=== PATIENT | female | born 1950 | race Caucasian/White ===

== ENCOUNTER 2017-02-15 12:35 | Emergency (ER) | payer OTHER, MEDICARE ==
[2017-02-15 12:40] VITALS: TEMP 98.1; BMI 24.7
[2017-02-15] MEDS ORDERED: PANTOPRAZOLE SODIUM 40 MG in SODIUM CHLORIDE 100 ML IVPB ONE (14:27)
[2017-02-15] MEDS ORDERED: SODIUM CHLORIDE 1,000 ML IV STA (14:27)
[2017-02-15] MEDS ORDERED: ONDANSETRON 4 MG/2 ML VIAL IVPUSH ONE (14:27)
[2017-02-15] MEDS ORDERED: PANTOPRAZOLE SODIUM 100 ML IVPB ONE (14:35)
[2017-02-15] MEDS ORDERED: ONDANSETRON 4 MG/2 ML VIAL ONE (14:35)
[2017-02-15 14:56] LABS: URINE APPEARANCE SLCLOUDY; URINE BILIRUBIN NEGATIVE (NEGATIVE); URINE COLOR LTYELLOW; URINE GLUCOSE (UA) NEGATIVE (NEGATIVE); URINE KETONE NEGATIVE (NEGATIVE); URINE NITRITE NEGATIVE (NEGATIVE); URINE UROBILINOGEN NEGATIVE E.U./dl (0.2-1.0)
--- NOTE | 2017-02-15 14:56 | PDOC ---
History of Present Illness - General Chief Complaint: Nausea/Vomiting Stated Complaint: NAUSEA/ LOSS OF APPETITE Time Seen by Provider: 02/15/17 13:19 History Source: Patient Exam Limitations: No Limitations - History of Present Illness Travel History: No Initial Comments: 02/15/17 14:51 66-year-old female presents the ED with complaints of epigastric pain associated with nausea and vomiting. Patient denies fever, chills, chest pain, shortness of breath, lower abdominal pain, diarrhea, or dysuria. Patient states was recently diagnosed with diabetes and is currently on Glucophage for the past 2 weeks. Patient denies recent travel, recent illness, recent sick contacts , recent change in diet. Patient does state history of hypothyroidism and autoimmune hepatitis Timing/Duration: reports: constant Quality: reports: moderate, burning, cramping Abdominal Pain Onset Location: reports: epigastric Pain Radiation: reports: no radiation Activities at Onset: reports: none Aggravating Factors: improves with: None Alleviating Factors: improves with: None Past History - Past Medical History Allergies/Adverse Reactions: Allergies Allergy/AdvReac Type Severity Reaction Status Date / Time Nitrate Analogues Allergy Verified 02/15/17 12:40 codeine [Codeine] AdvReac headache Verified 02/15/17 12:40 Home Medications: Ambulatory Orders Amlodipine Besylate [Norvasc -] 5 mg PO DAILY 08/08/15 Benazepril HCl [Lotensin] 10 mg PO DAILY 08/08/15 Budesonide [Entocort EC -] 3 mg PO BID 08/08/15 Calcium Carbonate/Vitamin D3 [Calcium 600-Vit D3 200 Tablet] 1 each PO BID 08/08 Carvedilol 12.5 mg PO BID 08/08/15 Cyanocobalamin [Vitamin B12 -] 1,000 mcg PO DAILY 08/08/15 Levothyroxine [Synthroid -] 50 mcg PO ACBK 08/08/15 Losartan Potassium 100 mg PO DAILY 08/08/15 Milk Thistle 150 mg PO DAILY 08/08/15 Potassium Chloride [Klor-Con] 120 meq PO DAILY 08/08/15 Vitamin E 400 unit PO DAILY 08/08/15 Azathioprine 50 mg PO DAILY 02/15/17 Metformin HCl [Metformin HCl ER] 500 mg PO BID 02/15/17 Nitrofurantoin Monohyd/M-Cryst [Macrobid -] 100 mg PO BID #14 capsule 02/15/17 Ondansetron HCl [Zofran] 4 mg PO TID PRN #12 tablet 02/15/17 Ranitidine HCl [Zantac] 150 mg PO BID 02/15/17 Anemia: No Asthma: No Cancer: No Cardiac Disorders: No CVA: No COPD: No CHF: No Dementia: No Diabetes: Yes GI Disorders: Yes (VARICES, DIVERTICULOSIS, POLYPS) Disorders: No HTN: Yes Hypercholesterolemia: Yes Liver Disease: Yes (NAFLD, AUTOIMMUNE HEPATITIS) Suicide Attempt (Hx): No Seizures: No Thyroid Disease: Yes (HYPOTHYROIDISM) - Surgical History Abdominal Surgery: Yes Appendectomy: Yes (RUPTURED) Cardiac Surgery: No Cholecystectomy: No Lung Surgery: No Neurologic Surgery: No Orthopedic Surgery: No - Immunization History Immunization Up to Date: Yes - Psycho/Social/Smoking Cessation Hx Anxiety: No Suicidal Ideation: No Smoking Status: No Smoking History: Never smoked Have you smoked in the past 12 months: No Number of Cigarettes Smoked Daily: 0 Information on smoking cessation initiated: No Hx Alcohol Use: No Drug/Substance Use Hx: No Substance Use Type: None Hx Substance Use Treatment: No Patient Lives Alone: No Abd/GI Specific PMHX - Complaint Specific PMHX GERD: Yes Review of Systems - Review of Systems Able to Perform ROS?: Yes Constitutional: No: Symptoms Reported HEENTM: No: Symptoms Reported Respiratory: No: Symptoms reported Cardiac (ROS): No: Symptoms Reported ABD/GI: Yes: Nausea, Poor Appetite, Poor Fluid Intake, Vomiting, Indigestion, Abdominal cramping : No: Symptoms Reported Musculoskeletal: No: Symptoms Reported Integumentary: No: Symptoms Reported Endocrine: No: Symptoms Reported Hematologic/Lymphatic: No: Symptoms Reported *Physical Exam - Vital Signs Last Vital Signs Temp Pulse Resp BP Pulse Ox 98.1 F 100 H 18 118/86 100 02/15/17 12:38 02/15/17 12:38 02/15/17 12:38 02/15/17 12:38 02/15/17 12:38 - Physical Exam General Appearance: Yes: Nourished, Appropriately Dressed. No: Apparent Distress HEENT: positive: EOMI, VIC, Pharynx Normal Neck: positive: Normal Thyroid Respiratory/Chest: positive: Lungs Clear, Normal Breath Sounds. negative: Respiratory Distress, Accessory Muscle Use Cardiovascular: positive: Regular Rhythm, Regular Rate. negative: Murmur Gastrointestinal/Abdominal: positive: Normal Bowel Sounds, Soft, Tenderness ( upper periumbilical/epigastric). negative: Distended, Guarding, Rebound Musculoskeletal: negative: CVA Tenderness Extremity: positive: Normal Capillary Refill. negative: Pedal Edema Integumentary: positive: Normal Color, Warm, Moist Neurologic: positive: Motor Strength 5/5 (ambulatory) ED Treatment Course - LABORATORY CBC & Chemistry Diagram: 02/15/17 15:30 02/15/17 16:26 - Medications Given in the ED: ED Medications Discontinued Medications Generic Name Dose Route Start Last Admin Trade Name Freq PRN Reason Stop Dose Admin Ondansetron HCl 4 mg 02/15/17 14:27 02/15/17 14:50 Zofran Injection IVPUSH 02/15/17 14:28 4 mg ONCE ONE Administration Medical Decision Making - Medical Decision Making 02/15/17 14:55 Patient with epigastric pain for the past 2 days associated nausea and vomiting. Patient received eyedrops diabetes and is currently on Glucophage the past 2 weeks. Patient ordered for labs, acetone, IV fluids, antiemetics, and Protonix. 02/15/17 18:14 02/15/17 18:15 Laboratory Tests 02/15/17 02/15/17 14:20 15:30 WBC 3.9 L Neutrophils % 66.9 Monocytes % 14.0 H Urine Protein 2+ H Urine Blood 1+ H Urine Nitrite Negative Urine Urobilinogen Negative Ur Leukocyte Esterase 3+ H D Urine RBC 2 Urine WBC 91 Chemistry hemolyzed and was resent. Patient will be discharged home with antibiotics. Urine culture was sent. 02/15/17 18:17 Laboratory Tests 02/15/17 16:26 Sodium 142 Anion Gap 11 BUN 22 H D Creatinine 2.6 H D Creat Clearance w eGFR 18.36 Random Glucose 92 D Calcium 7.6 L Total Bilirubin 0.9 ALT 23 D Troponin I < 0.02 Albumin 3.1 L Patient will receive potassium by mouth. Patient also will follow up with her PCP regards to today's elevated BUN/creatinine. Patient states was told that she had elevated BUNs and creatinine by Dr. Merritt 2 months ago but unsure how high. 02/15/17 18:23 *DC/Admit/Observation/Transfer Diagnosis at time of Disposition: Hypokalemia, Elevated BUN, Elevated serum creatinine Urinary tract infection Qualifiers: Urinary tract infection type: acute cystitis Hematuria presence: without hematuria Qualified Code(s): N30.00 - Acute cystitis without hematuria - Discharge Dispostion Disposition: HOME Condition at time of disposition: Good - Prescriptions Prescriptions: Nitrofurantoin Monohyd/M-Cryst [Macrobid -] 100 mg PO BID #14 capsule Ondansetron HCl [Zofran] 4 mg PO TID PRN #12 tablet PRN Reason: Nausea And/Or Vomiting - Referrals Referrals: David Merritt MD [Primary Care Provider] - - Patient Instructions Printed Discharge Instructions: DI for Urinary Tract Infection (UTI) Additional Instructions: Please take antibiotics until completed. please follow-up with Dr. Merritt and bring copy of blood work with you next week May take Tylenol for discomfort Please return to ED if symptoms worsen.
[2017-02-15 15:04] LABS: URINE BLOOD 1+ (NEGATIVE); URINE LEUK ESTERASE 3+ (NEGATIVE); URINE PROTEIN 2+ (NEGATIVE)
[2017-02-15 15:32] LABS: URINE MUCUS RARE; URINE RBC 2 /hpf (0-3); URINE WBC 91 /hpf (3-5)
[2017-02-15 15:50] LABS: BASOPHIL 0.4 % (0-2.0); EOSINOPHIL 0.5 % (0-4.5); MCH 29.3 pg (25.7-33.7); MCHC 32.4 g/dl (32.0-36.0); MEAN CELL VOLUME 90.4 fl (80-96); MEAN PLT VOLUME 9.5 fl (7.5-11.1); NEUTROPHILS 66.9 % (42.8-82.8); PLATELET COUNT 103 K/MM3 (134-434); RDW 17.6 % (11.6-15.6); WHITE BLOOD COUNT 3.9 K/mm3 (4.0-10.0)
--- NOTE | 2017-02-15 16:19 | PDOC ---
*Physical Exam - Vital Signs Last Vital Signs Temp Pulse Resp BP Pulse Ox 98.1 F 100 H 18 118/86 100 02/15/17 12:38 02/15/17 12:38 02/15/17 12:38 02/15/17 12:38 02/15/17 12:38 Heart Score/ECG Review #1 ECG reviewed & interpreted by me at: 16:18 General ECG Interpretation: Sinus Rhythm, Normal Rate ED Treatment Course - LABORATORY CBC & Chemistry Diagram: 02/15/17 15:30 02/15/17 16:26 - ADDITIONAL ORDERS Additional order review: Laboratory Results 02/15/17 14:20 Urine Color Ltyellow Urine Appearance Slcloudy Urine pH 6.0 Urine Protein 2+ H Urine Glucose (UA) Negative Urine Ketones Negative Urine Blood 1+ H Urine Nitrite Negative Urine Bilirubin Negative Urine Urobilinogen Negative Ur Leukocyte Esterase 3+ H D Urine RBC 2 Urine WBC 91 Ur Epithelial Cells Rare Urine Mucus Rare - Medications Given in the ED: ED Medications Discontinued Medications Generic Name Dose Route Start Last Admin Trade Name Julianoq PRN Reason Stop Dose Admin Pantoprazole Sodium 40 mg/ 100 mls @ 200 mls/hr 02/15/17 14:27 02/15/17 14:50 Sodium Chloride IVPB 02/15/17 14:56 200 mls/hr ONCE ONE Administration Sodium Chloride 1,000 mls @ 1,000 mls/hr 02/15/17 14:27 02/15/17 14:50 Normal Saline - IV 02/15/17 15:26 1,000 mls/hr ASDIR STA Administration Ondansetron HCl 4 mg 02/15/17 14:27 02/15/17 14:50 Zofran Injection IVPUSH 02/15/17 14:28 4 mg ONCE ONE Administration Medical Decision Making - Medical Decision Making 02/15/17 16:18 Pt seen by Midlevel Provider under my direct supervision Ancillary studies reviewed I agree with plan as outlined by Midlevel Provider *DC/Admit/Observation/Transfer Diagnosis at time of Disposition: Urinary tract infection, Hypokalemia, Elevated BUN, Elevated serum creatinine - Discharge Dispostion Disposition: HOME Condition at time of disposition: Good - Prescriptions Prescriptions: Nitrofurantoin Monohyd/M-Cryst [Macrobid -] 100 mg PO BID #14 capsule Ondansetron HCl [Zofran] 4 mg PO TID PRN #12 tablet PRN Reason: Nausea And/Or Vomiting - Referrals Referrals: David Merritt MD [Primary Care Provider] - - Patient Instructions Printed Discharge Instructions: DI for Urinary Tract Infection (UTI) Additional Instructions: Please take antibiotics until completed. please follow-up with Dr. Merritt and bring copy of blood work with you next week May take Tylenol for discomfort Please return to ED if symptoms worsen.
[2017-02-15 18:13] LABS: GLUCOSE,RANDOM 92 mg/dL (74-106)
[2017-02-15 18:14] LABS: ALBUMIN 3.1 g/dl (3.4-5.0); ANION GAP 11 (8-16); BILIRUBIN,TOTAL 0.9 mg/dL (0.2-1.0); CALCIUM 7.6 mg/dL (8.5-10.1); CO2 22 mmol/L (21-32); CREATININE 2.6 mg/dL (0.55-1.02); SGOT/AST 37 U/L (15-37); SGPT/ALT 23 U/L (12-78); TOT PROT 6.4 g/dl (6.4-8.2)
[2017-02-15 18:15] LABS: ALK PHOS 75 U/L (45-117); TROPONIN I < 0.02 ng/ml (0.00-0.05)
[2017-02-15] MEDS ORDERED: POTASSIUM CHLORIDE TABS 20 MEQ TABLET.ER (FP) PO ONE ×2 (18:17→18:23)
[2017-02-15 18:31] VITALS: BP 124/87; PULSE 95
--- NOTE | 2017-02-16 12:00 | EKG ---
Test Reason : Blood Pressure : / mmHG Vent. Rate : 092 BPM Atrial Rate : 092 BPM P-R Int : 140 ms QRS Dur : 074 ms QT Int : 362 ms P-R-T Axes : 029 -22 018 degrees QTc Int : 447 ms NORMAL SINUS RHYTHM ANTERIOR INFARCT (CITED ON OR BEFORE 17-AUG-2015) ABNORMAL ECG WHEN COMPARED WITH ECG OF 17-AUG-2015 16:54, QUESTIONABLE CHANGE IN QRS AXIS NONSPECIFIC T WAVE ABNORMALITY, WORSE IN ANTERIOR LEADS Confirmed by ANDRIA STEVENS MD ([id number]) on 02/16/2017 12:00:19 PM Referred By: Confirmed By:ANDRIA STEVENS MD
--- NOTE | 2017-02-18 18:20 | PDOC ---
Patient Follow-up (Call Back) - Post ED Follow - Up Condition at time of discharge: Good Disposition at time of original discharge: HOME Reason for Call Back: Abnwl. Microbiology (Patient with positive urine culture, was placed on Macrobid however findings of culture are indeterminate to macrobid. Called patient, left a message to discuss her condition and possible change in treatment. Awating call back.)
== END 2017-02-15 18:31 | disposition home or self-care (01) ==
LOC: JER 12:35
PROC: 3E033GC Introduction of Other Therapeutic Substance into Peripheral Vein, Percutaneous Approach (ICD-10-PCS; principal; 2017-02-15)
DX: N30.00 Acute cystitis without hematuria (principal); E87.6 Hypokalemia; R94.4 Abnormal results of kidney function studies; I10 Essential (primary) hypertension; E78.00 Pure hypercholesterolemia, unspecified; E03.9 Hypothyroidism, unspecified; K76.0 Fatty (change of) liver, not elsewhere classified; K75.4 Autoimmune hepatitis
CPT/HCPCS: 36415; 80053; 81003; 81015; 82550; 84484; 85025; 87086; 87186; 93005; 93010; 96365; 96375; 99282-25

== ENCOUNTER 2017-11-16 06:41 | Day surgery (SDC) | payer OTHER, MEDICARE ==
[2017-10-25 13:38] VITALS: BMI 23.8
[2017-11-16] MEDS ORDERED: LIDOCAINE HCL 2% (20ML MULTI-DOSE VIAL) NR ONE (08:06)
[2017-11-16] MEDS ORDERED: PROPOFOL 20 ML ONE (08:06)
[2017-11-16] MEDS ORDERED: ceFAZolin SODIUM 1 GM VIAL ONE (08:13)
[2017-11-16 08:42] VITALS: TEMP 97.7
[2017-11-16 13:56] VITALS: BP 130/83; PULSE 70
== END 2017-11-16 10:15 | disposition home or self-care (01) ==
LOC: JASU-ENDO 06:41
PROVIDERS: ATTEND Internal Medicine Gastroenterology
PROC: 06L38CZ Occlusion of Esophageal Vein with Extraluminal Device, Via Natural or Artificial Opening Endoscopic (ICD-10-PCS; principal; 2017-11-16 08:00)
DX: Z13.810 Encounter for screening for upper gastrointestinal disorder (principal); I85.00 Esophageal varices without bleeding; K76.6 Portal hypertension; K31.89 Other diseases of stomach and duodenum

== ENCOUNTER 2019-06-16 15:18 | Emergency (ER) | payer OTHER, MEDICARE ==
[2019-06-16 15:28] VITALS: TEMP 98.5; BMI 23.0
--- NOTE | 2019-06-16 15:50 | PDOC ---
History of Present Illness - General Chief Complaint: Weakness Stated Complaint: WEAKNESS/NAUSEA Time Seen by Provider: 06/16/19 15:48 - History of Present Illness Initial Comments: 06/16/19 16:56 69yo F hx recurrent UTIs, DM, HTN, autoimmune hepatitis, hypothyroidism, and GERD presents from home c/o nausea, PO intolerance, and generalized weakness x3 days. Pt sees Dr Triny Garcia approx c/3-4mo for routine evaluation of kidney function. 2 weeks ago pt was in [facility] but routine labs showed a "raging" UTI which was treated with Ciprofloxacin BID x7days, pt completed course. Pt remained in [facility] until 3 days ago when pt had gradual onset generalized weakness , nausea, and decreased PO tolerance. Pt can still tolerate liquids and jello. Pt states these symptoms are how she normally feels with UTIs. Last UTI culture in 2017 grew Klebsiella. Denies fever, chills, headache, dizziness, numbness/ tingling, focal weakness, vision changes, shortness of breath, cough, chest pain , palpitations, leg swelling, abdominal pain, blood in stool, diarrhea, constipation, vomiting, dysuria, hematuria, confusion, cardiac hx, FHx of early CAD, hx DVT/PE, calf tenderness, diaphoresis, recent travel, sick contacts. PCP - Shaina Watson - [facility] Past History - Past Medical History Allergies/Adverse Reactions: Allergies Allergy/AdvReac Type Severity Reaction Status Date / Time Nitrate Analogues Allergy Verified 06/16/19 17:29 codeine [Codeine] AdvReac headache Verified 06/16/19 17:29 Home Medications: Ambulatory Orders Amlodipine Besylate [Norvasc -] 5 mg PO DAILY 08/08/15 Benazepril HCl [Lotensin] 10 mg PO DAILY 08/08/15 Budesonide [Entocort EC -] 3 mg PO BID 08/08/15 Calcium Carbonate/Vitamin D3 [Calcium 600-Vit D3 200 Tablet] 1 each PO BID 08/08 Carvedilol 12.5 mg PO BID 08/08/15 Cyanocobalamin [Vitamin B12 -] 1,000 mcg PO DAILY 08/08/15 Losartan Potassium 100 mg PO DAILY 08/08/15 Milk Thistle 150 mg PO DAILY 08/08/15 Vitamin E 2 tab PO DAILY 08/08/15 Azathioprine 50 mg PO DAILY 02/15/17 Ranitidine HCl [Zantac] 150 mg PO BID 02/15/17 Levothyroxine [Synthroid -] 75 mcg PO DAILY 11/15/17 Potassium Chloride [Klor-Con M20] 2 tab PO DAILY 11/15/17 Mag Carb/Aluminum Hydrox/Algin [Gaviscon Liquid] 355 ml PO Q4H PRN #0 oral.susp 11/16/17 Pantoprazole Sodium 40 mg PO DAILY #90 tablet. 11/16/17 Cefpodoxime Proxetil [Vantin -] 100 mg PO BID #14 tablet 06/16/19 Anemia: No Asthma: No Cancer: No Cardiac Disorders: No CVA: No COPD: No CHF: No Dementia: No Diabetes: Yes (PREDNISONE INDUCED- RESOLVED) GI Disorders: Yes (DIVERTICULOSIS, ANTRAL POLYP, COLON ADENOMAS) Disorders: No HTN: Yes Hypercholesterolemia: No Liver Disease: Yes (NAFLD) Seizures: No Thyroid Disease: Yes (HYPOTHYROID) - Surgical History Abdominal Surgery: Yes Appendectomy: Yes (RUPTURED) Cardiac Surgery: No Cholecystectomy: No Lung Surgery: No Neurologic Surgery: No Orthopedic Surgery: No - Immunization History Immunization Up to Date: Yes - Psycho Social/Smoking Cessation Hx Smoking Status: No Smoking History: Never smoked Have you smoked in the past 12 months: No Number of Cigarettes Smoked Daily: 0 Information on smoking cessation initiated: No Hx Alcohol Use: No Drug/Substance Use Hx: No Substance Use Type: None Hx Substance Use Treatment: No Review of Systems - Review of Systems Comments:: 06/16/19 16:56 Constitutional: Positive for fatigue, generalized weakness. Negative for chills , fever. HENT: Negative for sore throat, rhinorrhea, congestion. Eyes: Negative for visual disturbance. Respiratory: Negative for shortness of breath, cough, and wheezing. Cardiovascular: Negative for chest pain, palpitations, and leg swelling. Gastrointestinal: Positive for nausea, PO intolerance. Negative for abdominal pain, blood in stool, constipation, diarrhea, and vomiting. Genitourinary: Negative for dysuria, flank pain, and hematuria. Musculoskeletal: Negative for myalgias, back pain, and neck pain. Skin: Negative for rash. Neurological: Negative for light-headedness, dizziness, syncope, weakness, numbness and headaches. Psychiatric/Behavioral: Negative for behavioral problems and confusion. *Physical Exam - Vital Signs Last Vital Signs Temp Pulse Resp BP Pulse Ox 98.5 F 94 H 16 104/83 95 06/16/19 15:21 06/16/19 15:21 06/16/19 15:21 06/16/19 15:21 06/16/19 15:21 - Physical Exam Comments: 06/16/19 16:56 Gen: Alert, NAD, comfortable-appearing. HEENT: PERRL, EOMI, MMM, NCAT. No conjunctival pallor. Sclera are non-icteric. Oropharynx is clear. CV: Regular rate and rhythm. No murmurs, rubs, or gallops. PULM: No resp distress. CTAB, no wheezes, rales, or rhonchi. ABD: soft, NT/ND, no rebound tenderness or guarding, no CVA tenderness. BACK: No TTP of c/t/l-spine. No step-offs or deformities. MSK: No bony deformities. 2+ pulses in all extremities. NEURO: AAOx3. PERRL. No gross CN deficits. Strength and sensation grossly intact throughout. EXTREMITIES: No cyanosis. No clubbing. No edema. No calf tenderness. PSYCH: Normal mood and thought pattern. SKIN: Warm and dry. Normal capillary refill. No rashes. No jaundice. Heart Score/ECG Review - ECG Impressions Comment:: 06/16/19 18:26 NSR, 84bpm, QTc 439ms, low voltage QRS, diffuse TW flattening, no TWIs, no ST elevations or depressions, no significant changes compared to 02/15/17. ED Treatment Course - LABORATORY CBC & Chemistry Diagram: 06/16/19 16:17 06/16/19 16:17 Medical Decision Making - Medical Decision Making 06/16/19 16:56 69yo F hx recurrent UTIs, DM, HTN, autoimmune hepatitis, hypothyroidism, and GERD presents from home with nausea, PO intolerance, and generalized weakness x3 days, recent asymptomatic UTI 2 weeks ago treated with Ciprofloxacin x 7days. Hemodynamically stable, afebrile, benign abdomen exam. Most likely UTI - UA/UC. No flank pain, CVA tenderness, fever, or tachycardia concerning for pyelo. No abdominal pain, vomiting, diarrhea, or constipation concerning for GI etiology. No jaundice or abdominal TTP concerning for acute hepatitis flare - evaluate with labs. Consider other etiologies of generalized weakness including cardiac pathology (low concern due to lack of CP, SOB, cardiac hx, FHx early CAD, diaphoresis, vomiting), anemia, metabolic derangement, or thyroid pathology - evaluate with labs. -EKG -CBC, CMP, Cardiac profile, Mg, Phos, TSH, UA/UC -IVF -Dispo: pending w/u 06/16/19 17:50 Labs reviewed. EKG reviewed. Of note, BUN 30.1 (22 in 2017), Cr 2.3 (2.6 in 2017 ), Mg 1.4, Tbili 1.2, AST 52, ALT 38, Trop neg, TSH 3.7, WBC 3.2 (3.9 in 2017), K 3.2 (3.1 in 2017). Minimal indications of UTI on UA. Will tx with ceftriaxone followed by cefpodoxime - pt has f/u appt with PCP on Tuesday so can review UC at that time and d/c vs continue vs change abx. K 3.2. Pt takes PO K supplements at home. Will give K here. Mg 1.4. Will give Mg here. Called administrative operations coordinator for recs. Stated will call me back in half an hour. 06/16/19 18:44 Spoke with GI Fellow patient companion for Dr Huitron. He has no concerns about plan or additional recommendations. Will dc home with PCP and Dr Huitron f/u. Return precautions given. Pt understands all dc instructions and all questions were answered. 06/16/19 19:31 Received text from GI fellow to tell pt to call Dr Huitron's office to make appt for next week. Attempted to call pt but went to voicemail. Wrote in call-back for tomorrow to inform pt. Discharge - Discharge Information Problems reviewed: Yes Clinical Impression/Diagnosis: Urinary tract infection Condition: Improved Disposition: HOME - Admission No - Additional Discharge Information Prescriptions: Cefpodoxime Proxetil [Vantin -] 100 mg PO BID #14 tablet - Follow up/Referral Referrals: David Merritt MD [Primary Care Provider] - - Patient Discharge Instructions Patient Printed Discharge Instructions: DI for Urinary Tract Infection (UTI) Additional Instructions: You have been seen in the Emergency Department for your weakness and nausea. Your EKG and labs, including Troponin (a heart enzyme), show no signs concerning for an emergent condition such as a heart attack. Your potassium and magnesium levels were low here so we gave you both to replenish them. Your urine does indicate a possible UTI (urinary tract infection), which is most likely causing your weakness and nausea. We have prescribed you an antibiotic to treat the UTI - take it as prescribed. It is also important to stay hydrated. Follow-up with your primary care doctor on Tuesday for further evaluation and the results of your urine culture. He may choose to continue, stop, or change the antibiotic based on those results. Also follow-up with Dr Huitron and Dr Rodriguez as planned. Return to the ED immediately if you experience vomiting, abdominal pain, fever, chest pain, difficulty breathing, dizziness, or any other new or worsening symptom. - Post Discharge Activity
[2019-06-16] MEDS ORDERED: SODIUM CHLORIDE 0.9% 500 ML INFUS.BAG IV ONE (16:17)
[2019-06-16 16:54] LABS: BASO % 0.4 % (0-2.0); EOS % 1.1 % (0-4.5); HEMATOCRIT 42.7 % (32.4-45.2); HEMOGLOBIN 14.4 GM/dL (10.7-15.3); LYMPH % 33.8 % (8-40); MCH 35.2 pg (25.7-33.7); MCHC 33.8 g/dl (32.0-36.0); MEAN CELL VOLUME 104.1 fl (80-96); MEAN PLT VOLUME 9.2 fl (7.5-11.1); MONO % 12.2 % (3.8-10.2); NEUT % 52.5 % (42.8-82.8); PLATELET COUNT 108 K/MM3 (134-434); WHITE BLOOD COUNT 3.2 K/mm3 (4.0-10.0)
[2019-06-16 16:55] LABS: EPI CELLS 20.1 /HPF (0-5/HPF); HYALINE CASTS 37 /lpf (0-8); URINE APPEARANCE CLOUDY; URINE BACTERIA 29.3 /hpf (NEGATIVE); URINE BILIRUBIN NEGATIVE (NEGATIVE); URINE COLOR YELLOW; URINE GLUCOSE (UA) NEGATIVE (NEGATIVE); URINE KETONE TRACE (NEGATIVE); URINE LEUK ESTERASE 1+ (NEGATIVE); URINE NITRITE NEGATIVE (NEGATIVE); URINE PROTEIN NEGATIVE (NEGATIVE); URINE RBC 1 /hpf (0-4); URINE UROBILINOGEN 0.2 mg/dL (0.2-1.0); URINE WBC 17 /hpf (0-5)
[2019-06-16 17:20] LABS: MAGNESIUM 1.4 mg/dL (1.8-2.4); PHOSPHOROUS 4.6 mg/dL (2.5-4.9)
[2019-06-16 17:21] LABS: ALBUMIN 3.6 g/dl (3.4-5.0); BILIRUBIN,TOTAL 1.2 mg/dL (0.2-1); BLOOD UREA NITROGEN 30.1 mg/dL (7-18); CALCIUM 9.2 mg/dL (8.5-10.1); CREATININE 2.3 mg/dL (0.55-1.3); POTASSIUM 3.2 mmol/L (3.5-5.1); TOT PROT 7.9 g/dl (6.4-8.2)
--- NOTE | 2019-06-16 17:22 | PDOC ---
Attending Attestation - Resident Resident Name: Stacey Dent - ED Attending Attestation I have performed the following: I have examined & evaluated the patient, The case was reviewed & discussed with the resident, I agree w/resident's findings & plan, Exceptions are as noted - HPI HPI: 06/16/19 17:46 Ms Castellano is a 69 yo F with a history of recurrent UTIs, DM, HTN, autoimmune hepatitis, hypothyroidism, chronic renal insufficiency who presents from home with nausea, PO intolerance, and generalized weakness x3 days She was recently treated for a UTI approximately 2 weeks ago Was started on Cipro and she took this for 1 week (completed treatment 1 week ago) Pt denies dysuria or flank pain No abdominal pain she did notice chills 2 days ago, no known fevers - Physicial Exam PE: 06/16/19 17:52 GENERAL: The patient is in no acute distress. HEAD: Normal EYES: PERRLA, EOMI, sclera anicteric, conjunctiva clear. ENT: Ears normal, nares patent, oropharynx clear without exudates. Moist mucous membranes. NECK: Normal range of motion, supple LUNGS: Breath sounds equal, clear to auscultation bilaterally. No wheezes, and no crackles. HEART:Regular rate and rhythm, normal S1 and S2 ABDOMEN: Soft, nontender, normoactive bowel sounds. No guarding, no rebound. EXTREMITIES: Normal range of motion, no edema. NEUROLOGICAL: Cranial nerves II through XII grossly intact. Normal speech. No focal neurological deficits. SKIN: Warm, Dry, normal turgor, no rashes or lesions noted. - Medical Decision Making 06/16/19 17:33 EKG - NSR rate of 84 bpm, axis nml, no st elevation or depression t waves flattened, no pathological qwaves 06/16/19 17:54 Laboratory Tests 06/16/19 06/16/19 06/16/19 16:17 16:17 16:17 WBC 3.2 L Hgb 14.4 Hct 42.7 D Plt Count 108 L Sodium 141 Potassium 3.2 L Chloride 104 Carbon Dioxide 25 Anion Gap 12 BUN 30.1 H Creatinine 2.3 H Random Glucose 89 Creatine Kinase 53 Troponin I < 0.02 Urine Blood Ur Leukocyte Esterase Urine WBC (Auto) Urine RBC (Auto) 06/16/19 16:17 WBC Hgb Hct Plt Count Sodium Potassium Chloride Carbon Dioxide Anion Gap BUN Creatinine Random Glucose Creatine Kinase Troponin I Urine Blood Negative Ur Leukocyte Esterase 1+ H Urine WBC (Auto) 17 Urine RBC (Auto) [address] Riggs Awaiting call back with Dr Benjamin covering Oneil will plan to discharge Treat for UTI
[2019-06-16] MEDS ORDERED: CEFTRIAXONE 1 GM in DEXTROSE 5%-WATER - 100 ML IVPB ONE (18:02)
[2019-06-16] MEDS ORDERED: CEFTRIAXONE 1 GM/50 ML BAG ONE (18:12)
[2019-06-16] MEDS ORDERED: POTASSIUM CHLORIDE ORAL LIQUID 20 MEQ/15 ML PO ONE (18:15)
[2019-06-16] MEDS ORDERED: POTASSIUM CHLORIDE TABS 20 MEQ TABLET.ER (FP) PO ONE (18:19)
[2019-06-16] MEDS ORDERED: MAGNESIUM SULF 50% (8.12 MEQ/2 ML-1 GM VIAL) IVPB ONE (18:19)
[2019-06-16 18:24] VITALS: BP 113/68; PULSE 80
[2019-06-16] MEDS ORDERED: MAGNESIUM SULF 50% (8.12 MEQ/2 ML-1 GM VIAL) ONE (18:33)
--- NOTE | 2019-06-17 16:50 | EKG ---
Test Reason : Blood Pressure : / mmHG Vent. Rate : 084 BPM Atrial Rate : 084 BPM P-R Int : 142 ms QRS Dur : 074 ms QT Int : 372 ms P-R-T Axes : 030 -23 025 degrees QTc Int : 439 ms NORMAL SINUS RHYTHM LOW VOLTAGE QRS NONSPECIFIC ST AND T WAVE ABNORMALITY ABNORMAL ECG WHEN COMPARED WITH ECG OF 15-FEB-2017 16:06, T WAVE VARIATION Confirmed by EMILEE HERNANDEZ MD ([id number]) on 06/17/2019 4:50:11 PM Referred By: Confirmed By:EMILEE HERNANDEZ MD
== END 2019-06-16 18:53 | disposition home or self-care (01) ==
LOC: JER 15:18
PROC: 3E03329 Introduction of Other Anti-infective into Peripheral Vein, Percutaneous Approach (ICD-10-PCS; principal; 2019-06-16)
PROC: 3E033GC Introduction of Other Therapeutic Substance into Peripheral Vein, Percutaneous Approach (ICD-10-PCS; 2019-06-16)
DX: N39.0 Urinary tract infection, site not specified (principal); I10 Essential (primary) hypertension; E03.9 Hypothyroidism, unspecified; K75.4 Autoimmune hepatitis; E87.6 Hypokalemia; Z87.440 Personal history of urinary (tract) infections; K76.0 Fatty (change of) liver, not elsewhere classified; Z87.19 Personal history of other diseases of the digestive system; E83.42 Hypomagnesemia; Z88.5 Allergy status to narcotic agent; Z88.8 Allergy status to other drugs, medicaments and biological substances
CPT/HCPCS: 36415; 80053; 81003; 82550; 83735; 84100; 84443; 84484; 85025; 87077; 87086; 93005; 93010; 96365; 96375; 99284-25

== ENCOUNTER 2020-06-17 01:39 | Emergency (ER) | payer OTHER, MEDICARE ==
--- NOTE | 2020-06-17 01:55 | PDOC ---
History of Present Illness - General Chief Complaint: Back Pain Stated Complaint: PAIN Time Seen by Provider: 06/17/20 01:54 History Source: Patient Exam Limitations: No Limitations - History of Present Illness Initial Comments: 06/17/20 01:59 Cindy Castellano is a 70F with PMH autoimmune hepatitis, recurrent UTI, DM, HTN, hypothyroidism, and GERD presenting with back pain. Had acute onset right-sided flank pain a few days ago, no recent trauma, was lying down and began to feel pain. Worse with movement specifically, low pain while standing or or lying down but has 10/10 pain while moving legs or lower back. Denies urinary/fecal incontinence, fever, recent trauma or exercise, or weakness/numbness of the extremities. Has had sciatica pain before but this is worse and feels different. Has been taking budesonide as part of autoimmune hepatitis management, liver doctor at [facility] reports may have osteoporosis. [facility] for EGD/colo on 06/06 for eval varices and routine surveillance of colon, all normal. Poor PO intake recently, last oral intake last night. Has not taken any medications for the last 2 days due to back pain. Reaction to codeine is migraine. Past History - Medical History Allergies/Adverse Reactions: Allergies Allergy/AdvReac Type Severity Reaction Status Date / Time Nitrate Analogues Allergy Verified 06/17/20 01:50 codeine [Codeine] AdvReac headache Verified 06/17/20 01:50 Home Medications: Ambulatory Orders Amlodipine Besylate [Norvasc -] 5 mg PO DAILY 08/08/15 Budesonide [Entocort EC -] 3 mg PO DAILY 08/08/15 Calcium Carbonate/Vitamin D3 [Calcium 600-Vit D3 200 Tablet] 1 each PO BID 08/08/15 Losartan Potassium 100 mg PO DAILY 08/08/15 Milk Thistle 150 mg PO DAILY 08/08/15 Levothyroxine [Synthroid -] 75 mcg PO DAILY 11/15/17 Potassium Chloride [Klor-Con M20] 2 tab PO DAILY 11/15/17 Mag Carb/Aluminum Hydrox/Algin [Gaviscon Liquid] 355 ml PO Q4H PRN #0 oral.susp 11/16/17 Pantoprazole Sodium 40 mg PO DAILY #90 tablet. 11/16/17 Azathioprine [Imuran -] 50 mg PO DAILY 06/04/20 Benazepril HCl 10 mg PO DAILY 06/04/20 Carvedilol 12.5 mg PO BID 06/04/20 Cholecalciferol (Vitamin D3) [Vitamin D -] 1,000 unit PO DAILY 06/04/20 Cyanocobalamin [Vitamin B12 -] 0.5 mg PO DAILY 06/04/20 L.acidoph,Paracasei, B.lactis [Probiotic] 1 each PO DAILY 06/04/20 Cephalexin Monohydrate [Keflex -] 500 mg PO BID #14 capsule 06/17/20 Lidocaine 5% Patch [Lidoderm Patch -] 1 patch TP DAILY #7 patch 06/17/20 Anemia: No Asthma: No Cancer: No Cardiac Disorders: No CVA: No COPD: No CHF: No Dementia: No Diabetes: Yes (PREDNISONE INDUCED- RESOLVED) GI Disorders: Yes (DIVERTICULOSIS, ANTRAL POLYP, COLON ADENOMAS) Disorders: No HTN: Yes Hypercholesterolemia: No Liver Disease: Yes (NAFLD) Seizures: No Thyroid Disease: Yes (HYPOTHYROID) - Surgical History Abdominal Surgery: No (EGD,COLONOSCOPY) Appendectomy: Yes (RUPTURED) Cardiac Surgery: No Cholecystectomy: No Lung Surgery: No Neurologic Surgery: No Orthopedic Surgery: No - Immunization History Immunization Up to Date: Yes - Psycho-Social/Smoking History Smoking Status: No Smoking History: Never smoked Have you smoked in the past 12 months: No Number of Cigarettes Smoked Daily: 0 - Substance Abuse Hx (Audit-C & DAST Scrn) How often the patient has a drink containing alcohol: Never Score: In Men: 4 or > Positive; In Women: 3 or > Positive: 0 Screen Result (Pos requires Nsg. Audit-10AR): Negative In the last yr the pt used illegal drug/Rx for NonMed reason: No Score: Yes response is considered Positive: 0 Screen Result (Positive result requires Nsg. DAST-10): Negative Review of Systems - Review of Systems Able to Perform ROS?: Yes Constitutional: No: Chills, Fever HEENTM: No: Symptoms Reported Respiratory: No: Cough, Shortness of Breath, SOB with Exertion, SOB at Rest Cardiac (ROS): No: Chest Pain, Irregular Heart Rate, Lightheadedness, Palpitations ABD/GI: Yes: Nausea, Poor Appetite, Poor Fluid Intake. No: Constipated, Diarrhea, Vomiting : No: Symptoms Reported Musculoskeletal: Yes: Back Pain. No: Muscle Pain, Muscle Weakness Integumentary: No: Bruising Neurological: No: Symptoms reported Endocrine: No: Symptoms Reported Hematologic/Lymphatic: No: Symptoms Reported All Other Systems: Reviewed and Negative *Physical Exam - Vital Signs Last Vital Signs Temp Pulse Resp BP Pulse Ox 99.6 F 125 H 18 159/102 H 97 06/17/20 01:48 06/17/20 01:48 06/17/20 01:48 06/17/20 01:48 06/17/20 01:48 - Physical Exam General Appearance: Yes: Nourished, Appropriately Dressed, Other (resting in bed in NAD unless she moves). No: Apparent Distress HEENT: positive: EOMI, VIC, Normal Voice, Symmetrical, Pharynx Normal. negative: Scleral Icterus (R), Scleral Icterus (L), Pharyngeal Erythema, Tonsillar Exudate, Tonsillar Erythema Neck: positive: Trachea midline, Normal Thyroid, Supple. negative: Tender, Rigid, Lymphadenopathy (R), Lymphadenopathy (L), Tender lateral, Tender midline Respiratory/Chest: positive: Lungs Clear, Normal Breath Sounds. negative: Chest Tender, Respiratory Distress, Accessory Muscle Use, Crackles, Rales, Rhonchi, Stridor, Wheezing Cardiovascular: positive: Regular Rhythm, Regular Rate. negative: Murmur Vascular Pulses: Femoral (R): 2+, Femoral (L): 2+, Carotid (R): 2+, Carotid (L): 2+, Dorsalis-Pedis (R): 2+, Doralis-Pedis (L): 2+ Gastrointestinal/Abdominal: positive: Normal Bowel Sounds, Flat, Soft. negative: Tender, Organomegaly, Pulsatile Mass, Guarding, Rebound Musculoskeletal: positive: Normal Inspection, CVA Tenderness (R), Other (acute tenderness to right iliopsoas region). negative: Decreased Range of Motion, Vertebral Tenderness (no midline pain) Extremity: positive: Normal Capillary Refill, Normal Inspection, Normal Range of Motion, Pelvis Stable. negative: Tender, Pedal Edema, Swelling, Calf Tenderness, Erythema, Inflammation Integumentary: positive: Normal Color, Dry, Warm Neurologic: positive: security professionals II-XII NML intact, Fully Oriented, Alert, Normal Mo od/Affect, Normal Response, Motor Strength 5/5. negative: Sensory Deficit ED Treatment Course - LABORATORY CBC & Chemistry Diagram: 06/17/20 02:40 06/17/20 03:47 - RADIOLOGY Radiograph Interpretation: 06/17/20 03:49 Suresh Iraheta MD wrote on Jun 17, 2020 at 03:44 AM: Referring Physician: ISAAC RUBI Patient Name: CINDY CASTELLANO THIS IS A PRELIMINARY REPORT DATE OF SERVICE: 2020-06-17 03:07:32 IMAGES: [id number] EXAM: LUMBAR SPINE CT W/O CONTRAST HISTORY: Right-sided back pain. COMPARISON: None. Lumbar scoliosis noted. Lumbar vertebrae are otherwise normally aligned. No fracture or destructive bone lesion. Degenerative changes: L1-2 disc bulging. L2-3 disc/osteophyte complex. L4-5 degenerative disc flattening, disc bulging, and bilateral facet hypertrophy. L5-S1 disc bulging eccentric to the right side possibly with a right-sided herniated component. This narrows the right foramen. Mild right facet hypertrophy as well. Please note that degenerative diseases including degenerative disc disease as well as nerve root and canal diseases are best evaluated with MRI. Suresh Iraheta MD wrote on Jun 17, 2020 at 03:40 AM: Referring Physician: ISAAC RUBI Patient Name: CINDY CASTELLANO THIS IS A PRELIMINARY REPORT DATE OF SERVICE: 2020-06-17 02:57:10 IMAGES: [id number] Exam: CT abdomen and pelvis without contrast HISTORY right-sided back pain. Rule out renal calculus COMPARISON: None. FINDINGS: Negative for right or left urinary tract stone or obstruction. The liver edges are lobulated. This can be seen in cirrhosis. If there is such a history? Normal spleen. No gallbladder abnormalities are identified. Normal pancreas. Normal adrenal glands. No bowel obstruction or inflammation. Osseous structures are intact. CT lumbar spine to follow Medical Decision Making - Medical Decision Making 06/17/20 01:54 Patient presents with acute onset right sided lower back pain with movement consistent with MSK pain, but has autoimmune hepatitis and possible osteoporosis. Ddx includes lumbar spinal fracture, renal calculus, MSK pain. Has good BLE reflexes and strength, no urinary bowel/bladder dysfunction. Lower susp icion of dissection, has good and equal BLE pulses, no decreased sensation, no abd tenderness. Will get CMP/CBC/UA/UC, and CT spiral and lumbar for full evaluation. Giving Tylenol and lidocaine patch for pain control. Ordering home HTN meds. 06/17/20 03:32 ECG sinus tachycardia with HR 107, QTc 435, no CHRISTY/D or TWI. Repeat BP 129/82, holding AM HTN medications. Labs notable for: - MCV >100 consistent with macrocytic anemia, Hgb WNL - AST 136 consistent with known hepatitis, not concerning at this time - K 6.5, hemolyzed, will re-draw 06/17/20 03:50 CT lumbar: Lumbar scoliosis noted. Lumbar vertebrae are otherwise normally aligned. No fracture or destructive bone lesion. Chronic degenerative disc disease also seen on prior MRI. CT spiral: Negative for right or left urinary tract stone or obstruction. Liver edges lobulated, likely related to autoimmune hepatitis. Resent potassium level Pending urine, patient drinking water now 06/17/20 04:26 Repeat K 2.8, patient chronically low, last documented at 3.2. Giving 40mg PO. Recommended to patient that she should stay for K riders and repeat K. Patient refuses. Recommend patient take daily scheduled 40 PO potassium and f/u with PMD for repeat testing in 48 hours. 06/17/20 04:42 UA shows UTI, giving Keflex and discharging home with Keflex Rx Discharge - Discharge Information Problems reviewed: Yes Clinical Impression/Diagnosis: Hypokalemia Lower back pain Qualifiers: Chronicity: acute Back pain laterality: right Sciatica presence: without sciatica Qualified Code(s): M54.5 - Low back pain Condition: Stable - Additional Discharge Information Prescriptions: Cephalexin Monohydrate [Keflex -] 500 mg PO BID #14 capsule Lidocaine 5% Patch [Lidoderm Patch -] 1 patch TP DAILY #7 patch - Follow up/Referral Referrals: David Merritt MD [Primary Care Provider] - - Patient Discharge Instructions Patient Printed Discharge Instructions: DI for Low Back Pain Additional Instructions: Today you were evaluated for lower back pain. Your CT scans do not show any problems. You have muscle spasms in the iliopsoas muscle that is causing your pain. We gave you Tylenol and a lidocaine patch and you felt better. Your potassium levels are lower than usual, and we gave you potassium to take. Please follow-up with Dr. Merritt in the next 48 hours for further blood works. The treatment is to rest the muscle, use lidoderm patches as prescribed, and use hot packs to allow the muscle to rest. Please speak to your regular doctor for further care. If you experience worsening pain, leg weakness, difficulty controlling your bladder, fever, or have any other new or concerning symptoms, please return to the emergency room. - Post Discharge Activity
--- NOTE | 2020-06-17 02:03 | PDOC ---
Attending Attestation - Resident Resident Name: Jacky Pretty - ED Attending Attestation I have performed the following: I have examined & evaluated the patient, The case was reviewed & discussed with the resident, I agree w/resident's findings & plan - HPI HPI: 06/17/20 02:02 see resident hpi - Physicial Exam PE: 06/17/20 02:02 see resident exam - Medical Decision Making 06/17/20 04:19 70-year-old female with several days of right low back pain with no inciting injury CT scans were performed of the abdomen and pelvis as well as reconstitutions of the lumbar spine which show no significant acute intra-abdominal abnormality There is significant multilevel degenerative and disc disease with scoliosis involving the lumbar spine Exam consistent with right paravertebral/right iliopsoas spasm with complete reproduction of pain complaint on direct palpation Patient is neurovascularly intact with no difficulty in ambulation bowel or urine control Improved after 1 dose of Tylenol and a Lidoderm patch Will DC with recommendations for heat application, will refrain from Tylenol and NSAID prescriptions due to liver disease and thrombocytopenia Patient to follow-up with primary care Discharge - Discharge Information Problems reviewed: Yes Clinical Impression/Diagnosis: Lower back pain Qualifiers: Chronicity: acute Back pain laterality: right Sciatica presence: without sciatica Qualified Code(s): M54.5 - Low back pain Condition: Stable - Follow up/Referral Referrals: David Merritt MD [Primary Care Provider] - - Patient Discharge Instructions Patient Printed Discharge Instructions: DI for Low Back Pain Additional Instructions: Today you were evaluated for lower back pain. Your labs are normal. Your CT scans do not show any problems. You have muscle spams in the iliopsoas muscle that is causing your pain. We gave you Tylenol and a lidocaine patch and you felt better. The treatment is to rest the muscle and Please speak to your regular doctor for further care. If you experience worsening pain, leg weakness, difficulty controlling your bladder, fever, or have any other new or concerning symptoms, please return to the emergency room. - Post Discharge Activity
[2020-06-17 02:14] VITALS: TEMP 99.6; BMI 23.0
[2020-06-17] MEDS ORDERED: LIDOCAINE 5% TOPICAL PATCH TP ONE (02:15)
[2020-06-17] MEDS ORDERED: LIDOCAINE 5% TOPICAL PATCH ONE (02:18)
--- OUTSIDE RECORDS SUMMARY | 2020-06-17 02:18 | XMS ---
:1950 Author Organization [facility] Care Team Providers Name Role Phone LEELA CUEVAS Unavailable Unavailable SEBASTIAN DIOP Unavailable Unavailable KENDRA PICKENS Unavailable Unavailable Re-disclosure Warning The records that you are about to access may contain information from federally- assisted alcohol or drug abuse programs. If such information is present, then the following federally mandated warning applies: This information has been disclosed to you from records protected by federal confidentiality rules (42 CFR part 2). The federal rules prohibit you from making any further disclosure of this information unless further disclosure is expressly permitted by the written consent of the person to whom it pertains or as otherwise permitted by 42 CFR part 2. A general authorization for the release of medical or other information is NOT sufficient for this purpose. The Federal rules restrict any use of the information to criminally investigate or prosecute any alcohol or drug abuse patient.The records that you are about to access may contain highly sensitive health information, the redisclosure of which is protected by Article 27-F of the [facility] Public Health law. If you continue you may haveaccess to information: Regarding HIV / AIDS; Provided by facilities licensed or operated by the [facility] Office of Mental Health; or Provided by the [facility] Office for People With Developmental Disabilities. If such information is present, then the following [facility] mandated warning applies: This information has been disclosed to you from confidential records which are protected by state law. State law prohibits you from making any further disclosure of this information without the specific written consent of the person to whom it pertains, or as otherwise permitted by law. Any unauthorized further disclosure in violation of state law may result in a fine or penitentiary sentence or both. A general authorization for the release of medical or other information is NOT sufficient authorization for further disclosure. Allergies and Adverse Reactions Type Description Substance Reaction Status Data Source(s ) Food allergy nitrates nitrates [facility] Drug allergy nitroglycerin nitroglycerin [facility] allergy codeine codeine [facility] on Encounters Encounter Providers Location Date Indications Data Source(s ) Outpatient Attender: CELIO 05/05/2020 K75.4 K74.60 [facility] CHIKIS [email or web address] ZVIAdmitter: KENDRA PICKENSReferrer: KENDRA PICKENS K75.4 K74.60 Outpatient Attender: CELIO 09/03/2019 06:00:00 K70.40 [facility] ROXANAAdmitter: FARZANA PICKENS [facility] ROXANAReferrer: Nitish PICKENS [facility] KENDRA K70.40 Outpatient Attender: CHIKIS 03/05/2019 06:00:00 K75.4 K74.60 [facility] ZVIAdmitter: [facility] [employer] ZVIReferrer: LEELA CUEVAS K75.4 K74.60 Insurance Providers Payer name Policy type Policy ID Covered Covered green party's Policy P meli / Coverage green party ID relationship to [employer] Inf ormation type rebollar [facility] [id number] [employer] MEDICARE [id number] Problems, Conditions, and Diagnoses Code Display Name Description Problem Type Effective Dates Data Source(s) K74.60 Unspecified UNSPECIFIED Diagnosis 05/05/2020 [place] cirrhosis of CIRRHOSIS OF 06:00:00 AM [facility] liver LIVER [facility] [employer] K75.4 Autoimmune AUTOIMMUNE Diagnosis 05/05/2020 [place] hepatitis HEPATITIS 06:00:00 AM [facility] alth [facility] [employer] on K70.40 Alcoholic hepatic 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 ID Date Data Source [id number] 03/31/2020 05:31:00 PM EDT [facility] Name Value Range Interpretation Code Description Data Marnia rce(s) Supporting Document(s ) COV2 [facility] This lab was ordered by GENESIS OCHOA and reported by [facility] [place]. Procedure
[2020-06-17] MEDS ORDERED: ACETAMINOPHEN 325 MG TABLET (FP) PO ONE (02:20)
[2020-06-17] MEDS ORDERED: ACETAMINOPHEN 325 MG TABLET (FP) ONE (02:27)
[2020-06-17 02:52] LABS: BASO % 2.5 % (0-2.0); EOS % 0.5 % (0-4.5); HEMATOCRIT 38.4 % (32.4-45.2); LYMPH % 25.4 % (8-40); MCH 34.2 pg (25.7-33.7); MCHC 33.9 g/dl (32.0-36.0); MEAN PLT VOLUME 9.3 fl (7.5-11.1); MONO % 11.8 % (3.8-10.2); NEUT % 59.8 % (42.8-82.8); PLATELET COUNT 99 K/MM3 (134-434); RBC 3.81 M/mm3 (3.60-5.2); RDW 14.5 % (11.6-15.6); WHITE BLOOD COUNT 3.4 K/mm3 (4.0-10.0)
[2020-06-17] MEDS ORDERED: CARVEDILOL 12.5 MG TABLET (FP) PO ONE (02:59)
[2020-06-17] MEDS ORDERED: amLODIPine BESYLATE 10 MG TABLET (FP) PO ONE (02:59)
[2020-06-17] MEDS ORDERED: LOSARTAN POTASSIUM 50 MG TABLET PO ONE (03:00)
[2020-06-17 03:17] LABS: ALBUMIN 3.1 g/dl (3.4-5.0); BILIRUBIN,TOTAL 1.4 mg/dL (0.2-1); BLOOD UREA NITROGEN 8.9 mg/dL (7-18); CALCIUM 8.8 mg/dL (8.5-10.1); CREATININE 0.9 mg/dL (0.55-1.3); TOT PROT 8.3 g/dl (6.4-8.2)
[2020-06-17] MEDS ORDERED: CARVEDILOL 12.5 MG TABLET (FP) ONE (03:20)
[2020-06-17] MEDS ORDERED: LOSARTAN POTASSIUM 50 MG TABLET ONE (03:21)
[2020-06-17] MEDS ORDERED: amLODIPine BESYLATE 5 MG TABLET (FP) ONE (03:21)
[2020-06-17 03:26] LABS: POTASSIUM 6.5 mmol/L (3.5-5.1)
[2020-06-17 03:32] VITALS: PULSE 90
[2020-06-17 04:24] LABS: EPI CELLS 22 /uL (0-25.1); HYALINE CASTS 0 /uL (0-3.1); PH,URINE 6.5 (5.0-8.0); URINE APPEARANCE CLEAR; URINE BACTERIA 7537 /uL (0-1359); URINE BILIRUBIN NEGATIVE (NEGATIVE); URINE COLOR YELLOW; URINE GLUCOSE (UA) NEGATIVE (NEGATIVE); URINE KETONE NEGATIVE (NEGATIVE); URINE LEUK ESTERASE 1+ (NEGATIVE); URINE NITRITE NEGATIVE (NEGATIVE); URINE PROTEIN NEGATIVE (NEGATIVE); URINE RBC 4 /uL (0-23.9); URINE WBC 44 /uL (0-25.8)
[2020-06-17] MEDS ORDERED: POTASSIUM CHLORIDE TABS 20 MEQ TABLET.ER (FP) PO ONE ×2 (04:26→04:27)
[2020-06-17 04:38] VITALS: BP 125/74
[2020-06-17] MEDS ORDERED: CEPHALEXIN MONOHYDRATE 500 MG CAPSULE (UD) PO ONE (04:41)
[2020-06-17 04:46] LABS: ANISOCYTOSIS 0; HELMET CELLS 0; HOWELL-JOLLY BODIES 0; MACROCYTOSIS 0; OVALOCYTE 0; PLATELET ESTIMATE DECREASED; ROULEAU 0; SICKELED CELLS 0; TARGET CELLS 0; TEAR DROP CELLS 0; TOXIC GRANULATION 0
[2020-06-17] MEDS ORDERED: CEPHALEXIN MONOHYDRATE 500 MG CAPSULE (UD) ONE (04:48)
--- NOTE | 2020-06-17 10:20 | EKG ---
Test Reason : Blood Pressure : / mmHG Vent. Rate : 109 BPM Atrial Rate : 109 BPM P-R Int : 152 ms QRS Dur : 068 ms QT Int : 298 ms P-R-T Axes : 029 -25 020 degrees QTc Int : 401 ms POOR DATA QUALITY, INTERPRETATION MAY BE ADVERSELY AFFECTED SINUS TACHYCARDIA WITH PREMATURE ATRIAL COMPLEXES POOR R WAVE PROGRESSION NONSPECIFIC T WAVE ABNORMALITY ABNORMAL ECG WHEN COMPARED WITH ECG OF 16-JUN-2019 16:24, PREMATURE ATRIAL COMPLEXES ARE NOW PRESENT Confirmed by MD Roshan, Jacques ([id number]) on 06/17/2020 10:20:08 AM Referred By: Confirmed By:Jacques Islas MD
[2020-06-17] MEDS ORDERED: LIDOCAINE PATCH REMOVAL MC SCH (22:00)
== END 2020-06-17 05:00 | disposition home or self-care (01) ==
LOC: JER 01:39
DX: E87.6 Hypokalemia (principal); M54.5 Low back pain
CPT/HCPCS: 36415; 72131-TC; 74176-TC; 80053; 81003; 84132; 85025; 87077; 87086; 93005; 93010; 99285-25

== ENCOUNTER 2020-09-03 15:43 | Inpatient (IN) | payer OTHER, MEDICARE ==
[2020-09-03 15:56] VITALS: BMI 22.6
[2020-09-03] MEDS ORDERED: ACETAMINOPHEN INJECTION 100 ML IVPB ONE (16:15)
[2020-09-03] MEDS ORDERED: SODIUM CHLORIDE 1,742 ML IV ONE (16:52)
[2020-09-03] MEDS ORDERED: ACETAMINOPHEN 1000 MG/100 ML BAG IVPB ONE (16:54)
[2020-09-03] MEDS ORDERED: PIPERACILLIN/TAZOB 4.5 GM 4.5 GM in DEXTROSE 5%-WATER 100 ML IVPB ONE (16:54)
[2020-09-03] MEDS ORDERED: VANCOMYCIN 1 GM in D5W (PRE-DOCKED) 1,000 MG/250 ML IVPB ONE (16:54)
[2020-09-03 17:23] LABS: BASO % 0.3 % (0-2.0); HEMATOCRIT 38.6 % (32.4-45.2); HEMOGLOBIN 13.2 GM/dL (10.7-15.3); LYMPH % 11.6 % (8-40); MCH 35.3 pg (25.7-33.7); MCHC 34.2 g/dl (32.0-36.0); MEAN CELL VOLUME 103.3 fl (80-96); MEAN PLT VOLUME 9.6 fl (7.5-11.1); MONO % 10.1 % (3.8-10.2); PLATELET COUNT 143 K/MM3 (134-434); RBC 3.74 M/mm3 (3.60-5.2); RDW 14.7 % (11.6-15.6); WHITE BLOOD COUNT 6.9 K/mm3 (4.0-10.0)
[2020-09-03] MEDS ORDERED: VANCOMYCIN 1 GRAM (PRE-DOCKED) 1,000 MG/250 ML BAG IVPB ONE (17:24)
[2020-09-03] MEDS ORDERED: PIPERACILLIN/TAZOB 4.5 GM 4.5 GM/100 ML BAG IVPB ONE (17:24)
[2020-09-03 17:29] LABS: INR 1.28 (0.83-1.09); PROTHROMBIN TIME (PATIENT) 15.4 SEC (9.7-13.0)
[2020-09-03 17:32] LABS: ACTIVATED PTT 30.3 SECONDS (25.2-36.5)
[2020-09-03 17:35] LABS: CALCIUM 7.5 mg/dL (8.5-10.1)
[2020-09-03 17:36] LABS: BLOOD UREA NITROGEN 14.7 mg/dL (7-18)
[2020-09-03 17:40] LABS: BILIRUBIN,TOTAL 1.8 mg/dL (0.2-1); TOT PROT 8.3 g/dl (6.4-8.2)
[2020-09-03 17:55] LABS: EPI CELLS 10 /uL (0-25.1); HYALINE CASTS 1 /uL (0-3.1); PH,URINE 6.5 (5.0-8.0); URINE APPEARANCE CLEAR; URINE BACTERIA >9,000 /uL (0-1359); URINE BILIRUBIN NEGATIVE (NEGATIVE); URINE COLOR DK YELLOW; URINE GLUCOSE (UA) NEGATIVE (NEGATIVE); URINE KETONE 1+ (NEGATIVE); URINE LEUK ESTERASE 1+ (NEGATIVE); URINE NITRITE NEGATIVE (NEGATIVE); URINE PROTEIN 1+ (NEGATIVE); URINE RBC 11 /uL (0-23.9); URINE WBC 134 /uL (0-25.8)
[2020-09-03] MEDS ORDERED: ENOXAPARIN NA (PORCINE) 40 MG/0.4 ML DISP.SYRIN SQ ONE (23:40)
[2020-09-03] MEDS ORDERED: CARVEDILOL 12.5 MG TABLET (FP) ONE (23:40)
[2020-09-03] MEDS: ENOXAPARIN NA (PORCINE) 40 MG/0.4 ML DISP.SYRIN SQ SCH (23:59)
[2020-09-04] MEDS ORDERED: PIPERACILLIN/TAZOB 3.375 GM 3.375 GM/50 ML BAG IVPB ONE (02:14)
[2020-09-04] MEDS: PIPERACILLIN/TAZOB 3.375 GM 3.375 GM in DEXTROSE 5%-WATER - 50 ML IVPB SCH ×4 (02:23→17:17)
[2020-09-04] MEDS ORDERED: ACETAMINOPHEN 325 MG TABLET (FP) ONE (02:42)
[2020-09-04] MEDS: ACETAMINOPHEN 325 MG TABLET (FP) PO PRN ×2 (02:50→14:49)
[2020-09-04] MEDS ORDERED: LEVOTHYROXINE NA 25 MCG TABLET (FP) ONE (07:25)
[2020-09-04] MEDS: LEVOTHYROXINE NA 75 MCG TABLET (FP) PO SCH (07:36)
[2020-09-04 08:33] LABS: HEMOGLOBIN 10.6 GM/dL (10.7-15.3); MCH 35.3 pg (25.7-33.7); MCHC 34.1 g/dl (32.0-36.0); MEAN CELL VOLUME 103.8 fl (80-96); MEAN PLT VOLUME 9.7 fl (7.5-11.1); PLATELET COUNT 85 K/MM3 (134-434); RBC 2.99 M/mm3 (3.60-5.2); RDW 14.6 % (11.6-15.6); WHITE BLOOD COUNT 3.5 K/mm3 (4.0-10.0)
[2020-09-04 08:46] LABS: ALBUMIN 2.2 g/dl (3.4-5.0); BILIRUBIN,TOTAL 1.4 mg/dL (0.2-1); BLOOD UREA NITROGEN 11.2 mg/dL (7-18); CREATININE 0.8 mg/dL (0.55-1.3); MAGNESIUM 1.7 mg/dL (1.8-2.4); TOT PROT 6.2 g/dl (6.4-8.2)
[2020-09-04 08:50] LABS: CALCIUM 6.5 mg/dL (8.5-10.1)
[2020-09-04] MEDS ORDERED: BENAZEPRIL HCL 10 MG PO SCH (10:00)
[2020-09-04] MEDS ORDERED: VANCOMYCIN 1 GM in D5W (PRE-DOCKED) 1,000 MG/250 ML IVPB SCH (10:00)
[2020-09-04] MEDS ORDERED: PIPERACILLIN/TAZOBACTAM 3.375 GM VIAL IVPB ONE ×2 (10:37→17:14)
[2020-09-04] MEDS ORDERED: DEXTROSE 5%-WATER - 50 ML IVPB ONE ×2 (10:38→17:14)
[2020-09-04] MEDS: CARVEDILOL 12.5 MG TABLET (FP) PO SCH ×3 (11:12→21:37)
[2020-09-04] MEDS: azaTHIOprine 50 MG TABLET PO SCH (11:13)
[2020-09-04] MEDS: POTASSIUM CHLORIDE TABS 20 MEQ TABLET.ER (FP) PO SCH (11:13)
[2020-09-04] MEDS: ENOXAPARIN NA (PORCINE) 40 MG/0.4 ML DISP.SYRIN SQ SCH (11:13)
[2020-09-04] MEDS: CALCIUM 500MG/VIT-D 200 UNITS COMBO TABLET (FP) PO SCH ×3 (11:14→21:37)
[2020-09-04] MEDS: amLODIPine BESYLATE 5 MG TABLET (FP) PO SCH (11:14)
[2020-09-04] MEDS: LISINOPRIL 10 MG TABLET PO SCH (11:15)
[2020-09-04] MEDS: PANTOPRAZOLE 40 MG TABLET PO SCH (11:15)
[2020-09-04] MEDS: CYANOCOBALAMIN 1,000 MCG TABLET (FP) PO SCH (11:15)
[2020-09-04] MEDS: CHOLECALCIFEROL (VIT D3) 1,000 UNIT (25 MCG) TABLET PO SCH (11:16)
[2020-09-04] MEDS ORDERED: AZITHROMYCIN IVPB 500 MG/250 ML BAG IVPB ONE (12:43)
[2020-09-04] MEDS ORDERED: MAGNESIUM SULF 50% (8.12 MEQ/2 ML-1 GM VIAL) IVPB ONE (15:00)
[2020-09-04] MEDS: SODIUM CHLORIDE 1,000 ML IV SCH ×2 (21:37)
[2020-09-05] MEDS ORDERED: PIPERACILLIN/TAZOBACTAM 3.375 GM VIAL IVPB ONE ×3 (02:06→17:41)
[2020-09-05] MEDS ORDERED: DEXTROSE 5%-WATER - 50 ML IVPB ONE ×3 (02:07→17:41)
[2020-09-05] MEDS: PIPERACILLIN/TAZOB 3.375 GM 3.375 GM in DEXTROSE 5%-WATER - 50 ML IVPB SCH ×4 (02:09→17:49)
[2020-09-05] MEDS: LEVOTHYROXINE NA 75 MCG TABLET (FP) PO SCH (06:05)
[2020-09-05 08:23] LABS: ALBUMIN 2.1 g/dl (3.4-5.0); BLOOD UREA NITROGEN 9.4 mg/dL (7-18); MAGNESIUM 2.1 mg/dL (1.8-2.4)
[2020-09-05 08:26] LABS: CREATININE 0.8 mg/dL (0.55-1.3)
[2020-09-05 08:28] LABS: BILIRUBIN,TOTAL 0.9 mg/dL (0.2-1); TOT PROT 5.9 g/dl (6.4-8.2)
[2020-09-05] MEDS ORDERED: POTASSIUM CHLORIDE TABS 20 MEQ TABLET.ER (FP) PO ONE (09:25)
[2020-09-05 09:32] LABS: BASO % 0.2 % (0-2.0); EOS % 0.2 % (0-4.5); HEMATOCRIT 31.8 % (32.4-45.2); HEMOGLOBIN 10.8 GM/dL (10.7-15.3); LYMPH % 22.6 % (8-40); MCH 35.5 pg (25.7-33.7); MEAN CELL VOLUME 104.4 fl (80-96); MEAN PLT VOLUME 9.6 fl (7.5-11.1); MONO % 10.6 % (3.8-10.2); NEUT % 66.4 % (42.8-82.8); PLATELET COUNT 90 K/MM3 (134-434); RBC 3.05 M/mm3 (3.60-5.2); RDW 14.7 % (11.6-15.6); WHITE BLOOD COUNT 2.9 K/mm3 (4.0-10.0)
[2020-09-05] MEDS ORDERED: PT OWN MED DRAWER 7, Y5N ONE (10:02)
[2020-09-05] MEDS: CHOLECALCIFEROL (VIT D3) 1,000 UNIT (25 MCG) TABLET PO SCH (10:09)
[2020-09-05] MEDS: CYANOCOBALAMIN 1,000 MCG TABLET (FP) PO SCH (10:10)
[2020-09-05] MEDS: amLODIPine BESYLATE 5 MG TABLET (FP) PO SCH (10:10)
[2020-09-05] MEDS: PANTOPRAZOLE 40 MG TABLET PO SCH (10:10)
[2020-09-05] MEDS: POTASSIUM CHLORIDE TABS 20 MEQ TABLET.ER (FP) PO SCH (10:10)
[2020-09-05] MEDS: LISINOPRIL 10 MG TABLET PO SCH (10:10)
[2020-09-05] MEDS: CARVEDILOL 12.5 MG TABLET (FP) PO SCH ×2 (10:10→21:15)
[2020-09-05] MEDS: azaTHIOprine 50 MG TABLET PO SCH (10:10)
[2020-09-05] MEDS: CALCIUM 500MG/VIT-D 200 UNITS COMBO TABLET (FP) PO SCH ×2 (10:10→21:15)
[2020-09-05] MEDS: ENOXAPARIN NA (PORCINE) 40 MG/0.4 ML DISP.SYRIN SQ SCH (10:10)
[2020-09-05 10:49] LABS: CALCIUM 6.5 mg/dL (8.5-10.1); PHOSPHOROUS 0.9 mg/dL (2.5-4.9)
[2020-09-05] MEDS ORDERED: POTASSIUM PHOSPHATE 30 MM in DEXTROSE 5%-WATER - 500 ML IVPB ONE (11:00)
[2020-09-05] MEDS: PATIENT'S OWN MEDICATION (NON-FORMULARY) (Budesonide 3 MG Cap.Sr.24h) PO SCH (14:11)
[2020-09-05] MEDS: CALCITRIOL 0.25 MCG CAPSULE (FP) PO SCH (14:18)
[2020-09-05] MEDS: SODIUM CHLORIDE 1,000 ML IV SCH (14:18)
[2020-09-05] MEDS ORDERED: ACETAMINOPHEN 325 MG TABLET (FP) PO PRN (14:22)
[2020-09-06] MEDS ORDERED: PIPERACILLIN/TAZOBACTAM 3.375 GM VIAL IVPB ONE ×3 (01:26→18:04)
[2020-09-06] MEDS ORDERED: DEXTROSE 5%-WATER - 50 ML IVPB ONE ×3 (01:26→18:04)
[2020-09-06] MEDS: PIPERACILLIN/TAZOB 3.375 GM 3.375 GM in DEXTROSE 5%-WATER - 50 ML IVPB SCH ×3 (01:30→18:08)
[2020-09-06] MEDS: SODIUM CHLORIDE 1,000 ML IV SCH (01:30)
[2020-09-06] MEDS: LEVOTHYROXINE NA 75 MCG TABLET (FP) PO SCH (06:17)
[2020-09-06 09:06] LABS: BASO % 0.3 % (0-2.0); EOS % 0.3 % (0-4.5); HEMATOCRIT 34.6 % (32.4-45.2); HEMOGLOBIN 11.7 GM/dL (10.7-15.3); LYMPH % 26.9 % (8-40); MCHC 33.8 g/dl (32.0-36.0); MEAN CELL VOLUME 103.7 fl (80-96); MEAN PLT VOLUME 9.8 fl (7.5-11.1); MONO % 10.5 % (3.8-10.2); PLATELET COUNT 114 K/MM3 (134-434); RBC 3.34 M/mm3 (3.60-5.2); RDW 14.6 % (11.6-15.6); WHITE BLOOD COUNT 2.5 K/mm3 (4.0-10.0)
[2020-09-06] MEDS ORDERED: PT OWN MED DRAWER 7, Y5N ONE (09:46)
[2020-09-06] MEDS: PANTOPRAZOLE 40 MG TABLET PO SCH (09:52)
[2020-09-06] MEDS: amLODIPine BESYLATE 5 MG TABLET (FP) PO SCH (09:52)
[2020-09-06] MEDS: CALCITRIOL 0.25 MCG CAPSULE (FP) PO SCH (09:53)
[2020-09-06] MEDS: CALCIUM 500MG/VIT-D 200 UNITS COMBO TABLET (FP) PO SCH ×2 (09:53→21:18)
[2020-09-06] MEDS: POTASSIUM CHLORIDE TABS 20 MEQ TABLET.ER (FP) PO SCH (09:53)
[2020-09-06] MEDS: azaTHIOprine 50 MG TABLET PO SCH (09:53)
[2020-09-06] MEDS: CARVEDILOL 12.5 MG TABLET (FP) PO SCH ×2 (09:53→21:16)
[2020-09-06] MEDS: CYANOCOBALAMIN 1,000 MCG TABLET (FP) PO SCH (09:53)
[2020-09-06] MEDS: CHOLECALCIFEROL (VIT D3) 1,000 UNIT (25 MCG) TABLET PO SCH (09:54)
[2020-09-06] MEDS: LISINOPRIL 10 MG TABLET PO SCH (09:54)
[2020-09-06] MEDS: ENOXAPARIN NA (PORCINE) 40 MG/0.4 ML DISP.SYRIN SQ SCH (09:54)
[2020-09-06 10:03] LABS: ALBUMIN 2.2 g/dl (3.4-5.0)
[2020-09-06 10:05] LABS: BLOOD UREA NITROGEN 6.9 mg/dL (7-18)
[2020-09-06 10:06] LABS: MAGNESIUM 1.7 mg/dL (1.8-2.4)
[2020-09-06 10:08] LABS: CREATININE 0.8 mg/dL (0.55-1.3); PHOSPHOROUS 1.3 mg/dL (2.5-4.9)
[2020-09-06 10:09] LABS: BILIRUBIN,TOTAL 0.8 mg/dL (0.2-1); TOT PROT 6.2 g/dl (6.4-8.2)
[2020-09-06 10:18] LABS: CALCIUM 6.4 mg/dL (8.5-10.1)
[2020-09-06] MEDS ORDERED: LOPERAMIDE HCL 2 MG CAPSULE PO ONE (15:30)
[2020-09-07] MEDS ORDERED: DEXTROSE 5%-WATER - 50 ML IVPB ONE ×3 (01:42→16:59)
[2020-09-07] MEDS ORDERED: PIPERACILLIN/TAZOBACTAM 3.375 GM VIAL IVPB ONE ×3 (01:42→16:59)
[2020-09-07] MEDS: SODIUM CHLORIDE 1,000 ML IV SCH ×3 (01:51→22:00)
[2020-09-07] MEDS: PIPERACILLIN/TAZOB 3.375 GM 3.375 GM in DEXTROSE 5%-WATER - 50 ML IVPB SCH ×3 (01:53→17:11)
[2020-09-07] MEDS: LEVOTHYROXINE NA 75 MCG TABLET (FP) PO SCH (07:00)
[2020-09-07] MEDS ORDERED: PT OWN MED DRAWER 7, Y5N ONE (09:37)
[2020-09-07] MEDS: LISINOPRIL 10 MG TABLET PO SCH (09:44)
[2020-09-07] MEDS: CALCITRIOL 0.25 MCG CAPSULE (FP) PO SCH (09:44)
[2020-09-07] MEDS: CYANOCOBALAMIN 1,000 MCG TABLET (FP) PO SCH (09:44)
[2020-09-07] MEDS: ENOXAPARIN NA (PORCINE) 40 MG/0.4 ML DISP.SYRIN SQ SCH (09:44)
[2020-09-07] MEDS: amLODIPine BESYLATE 5 MG TABLET (FP) PO SCH (09:44)
[2020-09-07] MEDS: PANTOPRAZOLE 40 MG TABLET PO SCH (09:44)
[2020-09-07] MEDS: POTASSIUM CHLORIDE TABS 20 MEQ TABLET.ER (FP) PO SCH (09:44)
[2020-09-07] MEDS: CHOLECALCIFEROL (VIT D3) 1,000 UNIT (25 MCG) TABLET PO SCH (09:44)
[2020-09-07] MEDS: CARVEDILOL 12.5 MG TABLET (FP) PO SCH ×2 (09:44→21:00)
[2020-09-07] MEDS: CALCIUM 500MG/VIT-D 200 UNITS COMBO TABLET (FP) PO SCH ×2 (09:44→21:00)
[2020-09-07] MEDS: azaTHIOprine 50 MG TABLET PO SCH (09:45)
[2020-09-07 12:44] LABS: BASO % 0.5 % (0-2.0); EOS % 0.5 % (0-4.5); HEMATOCRIT 31.8 % (32.4-45.2); HEMOGLOBIN 10.6 GM/dL (10.7-15.3); LYMPH % 31.1 % (8-40); MCH 34.8 pg (25.7-33.7); MCHC 33.3 g/dl (32.0-36.0); MEAN CELL VOLUME 104.7 fl (80-96); MEAN PLT VOLUME 9.7 fl (7.5-11.1); MONO % 11.6 % (3.8-10.2); NEUT % 56.3 % (42.8-82.8); PLATELET COUNT 107 K/MM3 (134-434); RBC 3.04 M/mm3 (3.60-5.2); RDW 14.7 % (11.6-15.6)
[2020-09-07 12:47] LABS: WHITE BLOOD COUNT 1.9 K/mm3 (4.0-10.0)
[2020-09-07 13:04] LABS: BLOOD UREA NITROGEN 4.9 mg/dL (7-18); MAGNESIUM 1.5 mg/dL (1.8-2.4)
[2020-09-07 13:07] LABS: CREATININE 0.7 mg/dL (0.55-1.3); PHOSPHOROUS 1.4 mg/dL (2.5-4.9)
[2020-09-07 13:08] LABS: BILIRUBIN,TOTAL 0.7 mg/dL (0.2-1); TOT PROT 5.6 g/dl (6.4-8.2)
[2020-09-07 13:22] LABS: CALCIUM 6.9 mg/dL (8.5-10.1)
[2020-09-07 13:47] LABS: ANISOCYTOSIS 2+; MACROCYTOSIS 2+; PLATELET ESTIMATE DECREASED
[2020-09-07] MEDS ORDERED: MAGNESIUM SULF 50% (8.12 MEQ/2 ML-1 GM VIAL) IVPB ONE (15:39)
[2020-09-08] MEDS ORDERED: PIPERACILLIN/TAZOBACTAM 3.375 GM VIAL IVPB ONE ×4 (01:31→17:01)
[2020-09-08] MEDS ORDERED: DEXTROSE 5%-WATER - 50 ML IVPB ONE ×4 (01:32→17:01)
[2020-09-08] MEDS: PIPERACILLIN/TAZOB 3.375 GM 3.375 GM in DEXTROSE 5%-WATER - 50 ML IVPB SCH ×3 (01:57→17:07)
[2020-09-08] MEDS: LEVOTHYROXINE NA 75 MCG TABLET (FP) PO SCH (06:21)
[2020-09-08 07:52] LABS: BASO % 0.6 % (0-2.0); EOS % 0.3 % (0-4.5); HEMATOCRIT 33.9 % (32.4-45.2); HEMOGLOBIN 11.4 GM/dL (10.7-15.3); LYMPH % 33.9 % (8-40); MCH 35.1 pg (25.7-33.7); MCHC 33.6 g/dl (32.0-36.0); MEAN CELL VOLUME 104.3 fl (80-96); MEAN PLT VOLUME 9.3 fl (7.5-11.1); NEUT % 53.2 % (42.8-82.8); PLATELET COUNT 128 K/MM3 (134-434); RBC 3.25 M/mm3 (3.60-5.2)
[2020-09-08 08:21] LABS: BLOOD UREA NITROGEN 3.2 mg/dL (7-18); MAGNESIUM 1.9 mg/dL (1.8-2.4)
[2020-09-08 08:23] LABS: ALBUMIN 2.1 g/dl (3.4-5.0)
[2020-09-08 08:24] LABS: PHOSPHOROUS 1.5 mg/dL (2.5-4.9)
[2020-09-08 08:26] LABS: CREATININE 0.6 mg/dL (0.55-1.3)
[2020-09-08 10:34] LABS: WHITE BLOOD COUNT 1.8 K/mm3 (4.0-10.0)
[2020-09-08] MEDS: CALCIUM 500MG/VIT-D 200 UNITS COMBO TABLET (FP) PO SCH ×2 (10:45→22:22)
[2020-09-08] MEDS: PANTOPRAZOLE 40 MG TABLET PO SCH (10:45)
[2020-09-08] MEDS: ENOXAPARIN NA (PORCINE) 40 MG/0.4 ML DISP.SYRIN SQ SCH (10:45)
[2020-09-08] MEDS: POTASSIUM CHLORIDE TABS 20 MEQ TABLET.ER (FP) PO SCH (10:45)
[2020-09-08] MEDS: CHOLECALCIFEROL (VIT D3) 1,000 UNIT (25 MCG) TABLET PO SCH (10:47)
[2020-09-08] MEDS: amLODIPine BESYLATE 5 MG TABLET (FP) PO SCH (10:47)
[2020-09-08] MEDS: CARVEDILOL 12.5 MG TABLET (FP) PO SCH ×2 (10:47→22:22)
[2020-09-08] MEDS: CYANOCOBALAMIN 1,000 MCG TABLET (FP) PO SCH (10:47)
[2020-09-08] MEDS: LISINOPRIL 10 MG TABLET PO SCH (10:47)
[2020-09-08] MEDS: CALCITRIOL 0.25 MCG CAPSULE (FP) PO SCH (10:48)
[2020-09-08] MEDS ORDERED: SODIUM PHOSPHATE - 30 MM in DEXTROSE 5%-WATER - 500 ML IVPB ONE (13:00)
[2020-09-08 14:03] LABS: ANISOCYTOSIS 1+; MACROCYTOSIS 1+; PLATELET ESTIMATE DECREASED
[2020-09-08] MEDS: BUDESONIDE 3 MG CAP.SR.24H PO SCH (16:59)
[2020-09-08] MEDS: MAGNESIUM CL 64 MG TABLET.SA PO SCH (18:31)
[2020-09-08] MEDS ORDERED: PT OWN MED DRAWER 7, Y5N ONE (19:03)
[2020-09-08] MEDS: SODIUM CHLORIDE 1,000 ML IV SCH (22:19)
[2020-09-09] MEDS ORDERED: PIPERACILLIN/TAZOBACTAM 3.375 GM VIAL IVPB ONE ×3 (00:22→17:04)
[2020-09-09] MEDS ORDERED: DEXTROSE 5%-WATER - 50 ML IVPB ONE ×3 (00:22→17:04)
[2020-09-09] MEDS: PIPERACILLIN/TAZOB 3.375 GM 3.375 GM in DEXTROSE 5%-WATER - 50 ML IVPB SCH ×3 (01:10→17:06)
[2020-09-09] MEDS: LEVOTHYROXINE NA 75 MCG TABLET (FP) PO SCH (06:13)
[2020-09-09 08:52] LABS: CALCIUM 7.3 mg/dL (8.5-10.1)
[2020-09-09 08:53] LABS: ALBUMIN 2.5 g/dl (3.4-5.0); BLOOD UREA NITROGEN 4.6 mg/dL (7-18)
[2020-09-09 08:55] LABS: CREATININE 0.7 mg/dL (0.55-1.3)
[2020-09-09 08:56] LABS: PHOSPHOROUS 2.1 mg/dL (2.5-4.9)
[2020-09-09 08:57] LABS: BILIRUBIN,TOTAL 0.7 mg/dL (0.2-1); TOT PROT 6.9 g/dl (6.4-8.2)
[2020-09-09] MEDS: CALCITRIOL 0.25 MCG CAPSULE (FP) PO SCH (09:37)
[2020-09-09] MEDS: BUDESONIDE 3 MG CAP.SR.24H PO SCH (09:37)
[2020-09-09] MEDS: PANTOPRAZOLE 40 MG TABLET PO SCH (09:38)
[2020-09-09] MEDS: LISINOPRIL 10 MG TABLET PO SCH (09:38)
[2020-09-09] MEDS: CYANOCOBALAMIN 1,000 MCG TABLET (FP) PO SCH (09:38)
[2020-09-09] MEDS: CARVEDILOL 12.5 MG TABLET (FP) PO SCH ×2 (09:39→21:22)
[2020-09-09] MEDS: amLODIPine BESYLATE 5 MG TABLET (FP) PO SCH (09:39)
[2020-09-09] MEDS: CALCIUM 500MG/VIT-D 200 UNITS COMBO TABLET (FP) PO SCH ×2 (09:39→21:22)
[2020-09-09] MEDS: POTASSIUM CHLORIDE TABS 20 MEQ TABLET.ER (FP) PO SCH (09:40)
[2020-09-09] MEDS: ENOXAPARIN NA (PORCINE) 40 MG/0.4 ML DISP.SYRIN SQ SCH (09:41)
[2020-09-09] MEDS: CHOLECALCIFEROL (VIT D3) 1,000 UNIT (25 MCG) TABLET PO SCH (09:41)
[2020-09-09] MEDS: NYSTATIN POWDER 100,000 UNITS/GM - 15 GM TOPICAL POWDER TP SCH (09:41)
[2020-09-09] MEDS: azaTHIOprine 50 MG TABLET PO SCH (09:42)
[2020-09-09] MEDS: MAGNESIUM CL 64 MG TABLET.SA PO SCH (09:42)
[2020-09-09] MEDS: NAPH,MB-DB/K PH,MBDB POWDER PACKET PO SCH ×2 (12:34→17:06)
[2020-09-09] MEDS: SODIUM CHLORIDE 1,000 ML IV SCH ×2 (12:43→21:22)
[2020-09-10] MEDS ORDERED: PIPERACILLIN/TAZOBACTAM 3.375 GM VIAL IVPB ONE ×2 (00:50→09:19)
[2020-09-10] MEDS ORDERED: DEXTROSE 5%-WATER - 50 ML IVPB ONE ×2 (00:50→09:19)
[2020-09-10] MEDS: PIPERACILLIN/TAZOB 3.375 GM 3.375 GM in DEXTROSE 5%-WATER - 50 ML IVPB SCH ×2 (01:07→09:49)
[2020-09-10] MEDS: LEVOTHYROXINE NA 75 MCG TABLET (FP) PO SCH (06:15)
[2020-09-10 07:04] VITALS: BP 123/64; PULSE 78; TEMP 98
[2020-09-10 08:55] LABS: BASO % 0.5 % (0-2.0); EOS % 0.2 % (0-4.5); HEMATOCRIT 35.9 % (32.4-45.2); HEMOGLOBIN 12.1 GM/dL (10.7-15.3); MCH 35.5 pg (25.7-33.7); MCHC 33.6 g/dl (32.0-36.0); MEAN CELL VOLUME 105.6 fl (80-96); MEAN PLT VOLUME 9.2 fl (7.5-11.1); MONO % 11.1 % (3.8-10.2); NEUT % 65.2 % (42.8-82.8); PLATELET COUNT 151 K/MM3 (134-434); RBC 3.39 M/mm3 (3.60-5.2); RDW 14.8 % (11.6-15.6); WHITE BLOOD COUNT 2.8 K/mm3 (4.0-10.0)
[2020-09-10 09:38] LABS: ANISOCYTOSIS 2+; MACROCYTOSIS 0; PLATELET ESTIMATE DECREASED
[2020-09-10] MEDS: POTASSIUM CHLORIDE TABS 20 MEQ TABLET.ER (FP) PO SCH (09:50)
[2020-09-10] MEDS: CARVEDILOL 12.5 MG TABLET (FP) PO SCH (09:50)
[2020-09-10] MEDS: LISINOPRIL 10 MG TABLET PO SCH (09:50)
[2020-09-10] MEDS: CALCITRIOL 0.25 MCG CAPSULE (FP) PO SCH (09:50)
[2020-09-10] MEDS: CHOLECALCIFEROL (VIT D3) 1,000 UNIT (25 MCG) TABLET PO SCH (09:50)
[2020-09-10] MEDS: amLODIPine BESYLATE 5 MG TABLET (FP) PO SCH (09:50)
[2020-09-10] MEDS: NAPH,MB-DB/K PH,MBDB POWDER PACKET PO SCH ×2 (09:51→11:54)
[2020-09-10] MEDS: CALCIUM 500MG/VIT-D 200 UNITS COMBO TABLET (FP) PO SCH (09:51)
[2020-09-10] MEDS: CYANOCOBALAMIN 1,000 MCG TABLET (FP) PO SCH (09:51)
[2020-09-10] MEDS: ENOXAPARIN NA (PORCINE) 40 MG/0.4 ML DISP.SYRIN SQ SCH (10:14)
[2020-09-10] MEDS: PANTOPRAZOLE 40 MG TABLET PO SCH (10:14)
[2020-09-10] MEDS: NYSTATIN POWDER 100,000 UNITS/GM - 15 GM TOPICAL POWDER TP SCH (10:15)
[2020-09-10] MEDS: BUDESONIDE 3 MG CAP.SR.24H PO SCH (10:18)
[2020-09-10] MEDS: MAGNESIUM CL 64 MG TABLET.SA PO SCH (10:18)
== END 2020-09-10 14:40 | disposition home or self-care (01) | DRG 689 ==
LOC: JER 15:43 → JERBED 21:09 → J8W 09-04 08:43
PROVIDERS: ADMIT Hospitalist; ATTEND Family Medicine
DX: N39.0 Urinary tract infection, site not specified (principal); J18.9 Pneumonia, unspecified organism; E87.2 Acidosis; E87.1 Hypo-osmolality and hyponatremia; D61.818 Other pancytopenia; K75.4 Autoimmune hepatitis; E83.51 Hypocalcemia; E20.9 Hypoparathyroidism, unspecified; E83.42 Hypomagnesemia; E83.39 Other disorders of phosphorus metabolism; D72.819 Decreased white blood cell count, unspecified; D69.6 Thrombocytopenia, unspecified; I10 Essential (primary) hypertension; E87.6 Hypokalemia
CPT/HCPCS: 36415; 71045-TC-FY; 71046-TC-FY; 71260-TC; 76700-TC; 80053; 81003; 82140; 82533; 82607; 82746; 82962; 83010; 83605; 83615; 83735; 83970; 84100; 84484; 85025; 85027; 85045; 85610; 85730; 86704; 86706; 87040; 87077; 87086; 87186; 87324; 87340; 87449; 87522; 87899; 93005; 93010; 99283-25; 99291; C9803; J0131; Q9967; U0003

== ENCOUNTER 2021-01-20 09:49 | Inpatient (IN) | payer OTHER, MEDICARE ==
[2021-01-20 12:44] LABS: BASO % 0.5 % (0-2.0); CHLORIDE 107 mmol/L (98-107); EOS % 0.8 % (0-4.5); HEMATOCRIT 40.3 % (32.4-45.2); HEMOGLOBIN 13.2 GM/dL (10.7-15.3); LYMPH % 19.6 % (8-40); MCH 30.6 pg (25.7-33.7); MCHC 32.6 g/dl (32.0-36.0); MEAN CELL VOLUME 93.8 fl (80-96); MEAN PLT VOLUME 9.1 fl (7.5-11.1); MONO % 9.7 % (3.8-10.2); NEUT % 69.4 % (42.8-82.8); PLATELET COUNT 88 K/MM3 (134-434); RBC 4.29 M/mm3 (3.60-5.2); RDW 17.5 % (11.6-15.6); SODIUM 138 mmol/L (136-145); WHITE BLOOD COUNT 3.7 K/mm3 (4.0-10.0)
[2021-01-20 12:46] LABS: ANION GAP 7 MMOL/L (8-16); BLOOD UREA NITROGEN 16.4 mg/dL (7-18); CALCIUM 8.3 mg/dL (8.5-10.1); CO2 24 mmol/L (21-32); GLUCOSE,RANDOM 155 mg/dL (74-106)
[2021-01-20 12:50] LABS: ALBUMIN 2.8 g/dl (3.4-5.0); CREATININE 0.9 mg/dL (0.55-1.3); SGOT/AST 81 U/L (15-37); SGPT/ALT 94 U/L (13-61)
[2021-01-20 12:51] LABS: BILIRUBIN,TOTAL 1.7 mg/dL (0.2-1); TOT PROT 6.7 g/dl (6.4-8.2)
[2021-01-20 12:52] LABS: ALK PHOS 137 U/L (45-117)
[2021-01-20 13:01] LABS: INR 1.06 (0.83-1.09)
[2021-01-20 13:04] LABS: ACTIVATED PTT 22.6 SECONDS (25.2-36.5)
[2021-01-20 13:28] LABS: N-TERMINAL BNP 55.1 pg/ml (5-125)
[2021-01-20] MEDS ORDERED: MAGNESIUM SULF 50% (8.12 MEQ/2 ML-1 GM VIAL) IVPB ONE (13:55)
[2021-01-20] MEDS ORDERED: MAGNESIUM SULF 50% (8.12 MEQ/2 ML-1 GM VIAL) ONE (14:17)
[2021-01-20 15:22] LABS: EPI CELLS 10 /uL (0-25.1); HYALINE CASTS 14 /uL (0-3.1); PH,URINE 5.5 (5.0-8.0); URINE APPEARANCE CLOUDY; URINE BACTERIA >9,000 /uL (0-1359); URINE BILIRUBIN 1+ (NEGATIVE); URINE COLOR DK YELLOW; URINE GLUCOSE (UA) TRACE (NEGATIVE); URINE KETONE TRACE (NEGATIVE); URINE LEUK ESTERASE 3+ (NEGATIVE); URINE NITRITE POSITIVE (NEGATIVE); URINE PROTEIN NEGATIVE (NEGATIVE); URINE RBC 15 /uL (0-23.9); URINE WBC 803 /uL (0-25.8)
[2021-01-20] MEDS ORDERED: PROPOFOL 200 MG/20 ML VIAL IVPUSH ONE ×2 (15:54→16:37)
[2021-01-20] MEDS ORDERED: CEFTRIAXONE 1 GM in DEXTROSE 5%-WATER - 50 ML IVPB ONE (16:37)
[2021-01-20] MEDS ORDERED: PROPOFOL 20 ML ONE (16:39)
[2021-01-20 18:21] LABS: BF WBC & OTHER NUCLEATED CELLS 62 /mm3
[2021-01-20] MEDS ORDERED: CEFTRIAXONE 1 GM/50 ML BAG ONE (18:53)
[2021-01-20] MEDS ORDERED: SODIUM CHLORIDE 0.9% 500 ML INFUS.BAG IV ONE ×2 (19:06)
[2021-01-20] MEDS ORDERED: ACETAMINOPHEN 1000 MG/100 ML VIAL (NON FORMULARY) IVPB ONE (19:06)
[2021-01-20] MEDS ORDERED: ACETAMINOPHEN INJECTION 100 ML IVPB ONE (19:34)
[2021-01-21 02:26] VITALS: BMI 22.5
[2021-01-21 06:50] LABS: BASO % 0.5 % (0-2.0); EOS % 0.5 % (0-4.5); HEMATOCRIT 38.2 % (32.4-45.2); HEMOGLOBIN 12.5 GM/dL (10.7-15.3); LYMPH % 18.8 % (8-40); MCH 30.7 pg (25.7-33.7); MCHC 32.8 g/dl (32.0-36.0); MEAN CELL VOLUME 93.5 fl (80-96); MEAN PLT VOLUME 9.2 fl (7.5-11.1); MONO % 8.8 % (3.8-10.2); NEUT % 71.4 % (42.8-82.8); PLATELET COUNT 67 K/MM3 (134-434); RBC 4.08 M/mm3 (3.60-5.2); RDW 17.5 % (11.6-15.6); WHITE BLOOD COUNT 3.3 K/mm3 (4.0-10.0)
[2021-01-21] MEDS ORDERED: LEVOTHYROXINE NA 75 MCG TABLET (FP) PO SCH (07:00)
[2021-01-21 07:12] LABS: ALBUMIN 2.2 g/dl (3.4-5.0); CALCIUM 7.5 mg/dL (8.5-10.1); MAGNESIUM 1.6 mg/dL (1.8-2.4)
[2021-01-21 07:13] LABS: BLOOD UREA NITROGEN 12.3 mg/dL (7-18); CREATININE 0.8 mg/dL (0.55-1.3)
[2021-01-21 07:15] LABS: BILIRUBIN,TOTAL 1.4 mg/dL (0.2-1); TOT PROT 5.8 g/dl (6.4-8.2)
[2021-01-21] MEDS: CARVEDILOL 12.5 MG TABLET (FP) PO SCH ×2 (09:29→21:08)
[2021-01-21] MEDS: CALCIUM 500MG/VIT-D 200 UNITS COMBO TABLET (FP) PO SCH ×2 (09:29→21:08)
[2021-01-21] MEDS: MYCOPHENOLATE MOFETIL 500 MG TABLET PO SCH ×2 (09:30→21:08)
[2021-01-21] MEDS ORDERED: CHOLECALCIFEROL (VIT D3) 1,000 UNIT (25 MCG) TABLET PO SCH (10:00)
[2021-01-21] MEDS ORDERED: LACTOBACILLUS ACIDOPHILUS 1 TABLET PO SCH (10:00)
[2021-01-21] MEDS ORDERED: LISINOPRIL 10 MG TABLET PO SCH (10:00)
[2021-01-21] MEDS ORDERED: PANTOPRAZOLE 40 MG TABLET PO SCH (10:00)
[2021-01-21] MEDS ORDERED: amLODIPine BESYLATE 10 MG TABLET (FP) PO SCH (10:00)
[2021-01-21 10:07] LABS: BODY FLUID MACROPHAGES 26 %; BODY FLUID MESOTHELIAL 5 %; BODY FLUID MONOCYTE 20 %
[2021-01-21] MEDS ORDERED: ONDANSETRON 4 MG/2 ML VIAL IVPUSH PRN (11:57)
[2021-01-21] MEDS: predniSONE 5 MG TABLET (UD) PO SCH ×2 (14:20→21:08)
[2021-01-21] MEDS ORDERED: MAGNESIUM SULF 50% (8.12 MEQ/2 ML-1 GM VIAL) IVPB ONE (16:16)
[2021-01-21] MEDS ORDERED: AMINO ACIDS 4.25%/D5W 1,000 ML IV SCH (16:30)
[2021-01-21] MEDS ORDERED: DEXTROSE 5%-WATER - 50 ML IVPB ONE (16:41)
[2021-01-21] MEDS ORDERED: cefTRIAXone SODIUM 1 GM VIAL ONE (16:41)
[2021-01-21] MEDS ORDERED: CEFTRIAXONE 1 GM in DEXTROSE 5%-WATER - 50 ML IVPB SCH (18:00)
[2021-01-21] MEDS: KCL 10 MEQ IVPB 10 MEQ/100 ML INFUS.BAG IVPB SCH ×2 (18:09→19:40)
[2021-01-21] MEDS ORDERED: PT OWN MED DRAWER 7, Y5N ONE (21:06)
[2021-01-21 22:49] VITALS: BP 112/80; PULSE 92; TEMP 98.8
[2021-01-22 16:08] LABS: BODY FLUID ALBUMIN 0.9 g/dL (Not Estab.)
== END 2021-01-21 22:45 | disposition short-term general hospital (02) | DRG 187 ==
LOC: JER 09:49 → JERBED 18:38 → J4S 01-21 01:22
PROVIDERS: ADMIT Hospitalist; ATTEND Family Medicine
PROC: 0W993ZX Drainage of Right Pleural Cavity, Percutaneous Approach, Diagnostic (ICD-10-PCS; principal; 2021-01-20)
DX: J90 Pleural effusion, not elsewhere classified (principal); N39.0 Urinary tract infection, site not specified; I10 Essential (primary) hypertension; E03.9 Hypothyroidism, unspecified; E11.9 Type 2 diabetes mellitus without complications; E83.42 Hypomagnesemia; D69.6 Thrombocytopenia, unspecified; K75.4 Autoimmune hepatitis
CPT/HCPCS: 36415; 71045-TC-FY; 71250-TC; 80053; 81003; 82042; 82105; 82150; 82465; 82607; 82945; 83615; 83735; 83880; 84157; 84478; 84484; 85025; 85610; 85730; 86140; 87040; 87070; 87075; 87086; 87186; 87205; 93005; 93010; 93306-TC; 99285-25; C9803; J0131; J7517; U0003; U0005

== ENCOUNTER 2021-07-06 04:48 | Day surgery (SDC) | payer OTHER, MEDICARE ==
[2021-07-03 11:04] VITALS: BMI 23.0
[~2021-07-06 04:48] MED LIST: BUPIVACAINE HCL/PF 0.5% (5 MG/ML) 30 ML VIAL IJ ONE; LIDOCAINE HCL 1%, 10 MG/ML (20ML VIAL) INF ONE; ceFAZolin SODIUM 1 GM VIAL IVPB ONE
[2021-07-06] MEDS ORDERED: BUPIVACAINE HCL/PF 0.5% (5MG/ML) 10 ML VIAL ONE (07:16)
[2021-07-06] MEDS ORDERED: MIDAZOLAM HCL 2 MG/2 ML SINGLE DOSE VIAL ONE (07:36)
[2021-07-06] MEDS ORDERED: PROPOFOL 20 ML ONE (07:36)
[2021-07-06] MEDS ORDERED: ceFAZolin SODIUM 1 GM VIAL IVPB ONE (08:15)
[2021-07-06] MEDS ORDERED: BUPIVACAINE HCL/PF 0.5% (5 MG/ML) 30 ML VIAL IJ ONE (08:24)
[2021-07-06] MEDS ORDERED: LIDOCAINE HCL 1%, 10 MG/ML (20ML VIAL) INF ONE (08:24)
[2021-07-06] MEDS ORDERED: KETOROLAC TROMETHAMINE 30 MG/1 ML VIAL ONE (08:52)
[2021-07-06] MEDS ORDERED: ONDANSETRON 4 MG/2 ML VIAL ONE (08:52)
[2021-07-06] MEDS ORDERED: ceFAZolin SODIUM 1 GM VIAL ONE (08:52)
[2021-07-06 09:02] VITALS: TEMP 98.5
[2021-07-06 09:50] VITALS: BP 105/71; PULSE 78
[2021-07-06] MEDS ORDERED: ONDANSETRON 4 MG/2 ML VIAL IVPUSH PRN (12:38)
[2021-07-06] MEDS ORDERED: oxyCODONE HCL 5 MG TABLET PO PRN ×2 (12:38)
[2021-07-06] MEDS ORDERED: LACTATED RINGERS SOLUTION 1,000 ML IV SCH (12:45)
== END 2021-07-06 09:55 | disposition home or self-care (01) ==
LOC: JASU-SURG 04:48
PROVIDERS: ATTEND Orthopaedic Surgery
PROC: 0LN70ZZ Release Right Hand Tendon, Open Approach (ICD-10-PCS; 2021-07-06)
PROC: 0LN70ZZ Release Right Hand Tendon, Open Approach (ICD-10-PCS; principal; 2021-07-06 08:00)
DX: M65.331 Trigger finger, right middle finger (principal); M65.341 Trigger finger, right ring finger
CPT/HCPCS: 82962; 88304-TC

== ENCOUNTER 2021-07-18 09:52 | Day surgery (SDC) | payer OTHER, MEDICARE ==
[2021-07-18] MEDS ORDERED: FERRIC CARBOXYMALTOSE 750 MG in SODIUM CHLORIDE 250 ML IVPB SCH (10:45)
[2021-07-18 10:48] VITALS: TEMP 98.6
[2021-07-18 11:30] VITALS: BMI 23.0
[2021-07-18 12:26] VITALS: BP 122/75; PULSE 80
== END 2021-07-18 12:34 | disposition home or self-care (01) ==
LOC: FINFUSION 09:52 → FM/S 10:23 → FINFUSION 12:34
PROVIDERS: ATTEND Family Medicine
PROC: 3E033GC Introduction of Other Therapeutic Substance into Peripheral Vein, Percutaneous Approach (ICD-10-PCS; principal; 2021-07-18)
DX: D50.9 Iron deficiency anemia, unspecified (principal)
CPT/HCPCS: 96365; J1439

== ENCOUNTER 2021-07-29 11:35 | Day surgery (SDC) | payer OTHER, MEDICARE ==
[2021-07-29 12:11] VITALS: TEMP 98.3; BMI 22.8
[2021-07-29] MEDS ORDERED: FERRIC CARBOXYMALTOSE 750 MG in SODIUM CHLORIDE 250 ML IVPB ONE (12:30)
[2021-07-29 14:36] VITALS: BP 117/75; PULSE 80
== END 2021-07-29 13:45 | disposition home or self-care (01) ==
LOC: FINFUSION 11:35 → FM/S 11:37 → FINFUSION 13:45
PROVIDERS: ATTEND Family Medicine
PROC: 3E033GC Introduction of Other Therapeutic Substance into Peripheral Vein, Percutaneous Approach (ICD-10-PCS; principal; 2021-07-29)
DX: D50.9 Iron deficiency anemia, unspecified (principal)
CPT/HCPCS: 96365; J1439

== ENCOUNTER 2022-12-20 20:05 | Emergency (ER) | payer OTHER, MEDICARE ==
[2022-12-20 20:09] VITALS: BMI 22.1
[2022-12-20] MEDS ORDERED: ACETAMINOPHEN 1000 MG/100 ML BAG IVPB ONE (21:21)
[2022-12-20] MEDS ORDERED: ONDANSETRON 4 MG/2 ML VIAL IVPUSH ONE (21:21)
[2022-12-20] MEDS ORDERED: ACETAMINOPHEN INJECTION 100 ML IVPB ONE ×2 (21:28→22:24)
[2022-12-20] MEDS ORDERED: ONDANSETRON 4 MG/2 ML VIAL ONE (21:28)
[2022-12-20 23:13] LABS: BASO % 0.5 % (0-2.0); EOS % 0.8 % (0-4.5); HEMATOCRIT 41.1 % (32.4-45.2); HEMOGLOBIN 13.9 GM/dL (10.7-15.3); LYMPH % 15.5 % (8-40); MCH 33.1 pg (25.7-33.7); MCHC 33.9 g/dl (32.0-36.0); MEAN CELL VOLUME 97.8 fl (80-96); MEAN PLT VOLUME 8.4 fl (7.5-11.1); MONO % 11.9 % (3.8-10.2); NEUT % 71.3 % (42.8-82.8); PLATELET COUNT 95 10^3/uL (134-434); RDW 14.6 % (11.6-15.6); WHITE BLOOD COUNT 4.9 K/mm3 (4.0-10.0)
[2022-12-20 23:30] LABS: EPI CELLS 24 /uL (0-25.1); HYALINE CASTS 1 /uL (0-3.1); PH,URINE 5.5 (5.0-8.0); URINE APPEARANCE CLEAR; URINE BACTERIA 53 /uL (0-1359); URINE BILIRUBIN NEGATIVE (NEGATIVE); URINE COLOR DK YELLOW; URINE GLUCOSE (UA) NEGATIVE (NEGATIVE); URINE KETONE NEGATIVE (NEGATIVE); URINE LEUK ESTERASE 1+ (NEGATIVE); URINE NITRITE NEGATIVE (NEGATIVE); URINE PROTEIN NEGATIVE (NEGATIVE); URINE RBC 64 /uL (0-23.9); URINE WBC 39 /uL (0-25.8)
[2022-12-20 23:33] LABS: CALCIUM 8.5 mg/dL (8.5-10.1)
[2022-12-20 23:34] LABS: ALBUMIN 3.1 g/dl (3.4-5.0); BLOOD UREA NITROGEN 14.9 mg/dL (7-18)
[2022-12-20 23:38] LABS: BILIRUBIN,TOTAL 1.4 mg/dL (0.2-1); TOT PROT 8.2 g/dl (6.4-8.2)
[2022-12-21 01:22] VITALS: BP 119/74; PULSE 81; RESP 16; TEMP 98.5
== END 2022-12-21 03:49 | disposition home or self-care (01) ==
LOC: JER 20:05
PROC: 3E033NZ Introduction of Analgesics, Hypnotics, Sedatives into Peripheral Vein, Percutaneous Approach (ICD-10-PCS; principal; 2022-12-20)
DX: N39.0 Urinary tract infection, site not specified (principal)
CPT/HCPCS: 36415; 71045-TC-FY; 74177-TC; 80053; 81003; 83690; 84484; 85025; 87086; 87186; 99285-25

== ENCOUNTER 2023-09-13 13:51 | Emergency (ER) | payer OTHER, MEDICARE ==
[2023-09-13] MEDS ORDERED: SODIUM CHLORIDE 0.9% 500 ML INFUS.BAG IV ONE (15:08)
[2023-09-13 16:03] LABS: BASO % 0.5 % (0-2.0); EOS % 0.7 % (0-4.5); HEMATOCRIT 32.8 % (32.4-45.2); HEMOGLOBIN 10.4 GM/dL (10.7-15.3); LYMPH % 26.6 % (8-40); MCH 26.7 pg (25.7-33.7); MCHC 31.8 g/dl (32.0-36.0); MEAN PLT VOLUME 9.2 fl (7.5-11.1); MONO % 9.7 % (3.8-10.2); NEUT % 62.5 % (42.8-82.8); PLATELET COUNT 100 10^3/uL (134-434); RDW 16.9 % (11.6-15.6); WHITE BLOOD COUNT 2.3 K/mm3 (4.0-10.0)
[2023-09-13 16:13] VITALS: BP 101/61; PULSE 75; RESP 18; TEMP 97.8; BMI 22.4
[2023-09-13 17:06] LABS: ALBUMIN 2.8 g/dl (3.4-5.0); BILIRUBIN,TOTAL 1.2 mg/dL (0.2-1); BLOOD UREA NITROGEN 15.2 mg/dL (7-18); CALCIUM 9.3 mg/dL (8.5-10.1); CREATININE 0.9 mg/dL (0.55-1.3); TOT PROT 7.8 g/dl (6.4-8.2)
== END 2023-09-13 17:55 | disposition left against medical advice (07) ==
LOC: JER 13:51
DX: R55 Syncope and collapse (principal); R42 Dizziness and giddiness; Z20.822 Contact with and (suspected) exposure to COVID-19
CPT/HCPCS: 0241U-QW; 36415; 70450-TC; 71045-TC-FY; 72125-TC; 72170-TC-FY; 80053; 83735; 84484; 85025; 99285-25

== ENCOUNTER 2024-04-30 11:43 | Day surgery (SDC) | payer OTHER, MEDICARE ==
[2024-04-30] MEDS: FERRIC CARBOXYMALTOSE 750 MG in SODIUM CHLORIDE 250 ML IVPB ONE (12:28)
[2024-04-30 13:30] VITALS: BP 120/72; PULSE 65; RESP 16; TEMP 98.1
== END 2024-04-30 13:45 | disposition home or self-care (01) ==
LOC: FINFUSION 11:43 → FM/S 11:48 → FINFUSION 13:45
PROVIDERS: ATTEND Family Medicine
PROC: 3E033GC Introduction of Other Therapeutic Substance into Peripheral Vein, Percutaneous Approach (ICD-10-PCS; principal; 2024-04-30)
DX: D50.9 Iron deficiency anemia, unspecified (principal)
CPT/HCPCS: 96365; J1439

== ENCOUNTER 2024-05-07 11:49 | Day surgery (SDC) | payer OTHER, MEDICARE ==
[2024-05-07 12:02] VITALS: RESP 16; TEMP 98.4
[2024-05-07] MEDS: FERRIC CARBOXYMALTOSE 750 MG in SODIUM CHLORIDE 250 ML IVPB ONE (12:18)
[2024-05-07 13:56] VITALS: BP 112/86; PULSE 78
== END 2024-05-07 13:57 | disposition home or self-care (01) ==
LOC: FINFUSION 11:49 → FM/S 11:59 → FINFUSION 13:57
PROVIDERS: ATTEND Family Medicine
PROC: 3E033GC Introduction of Other Therapeutic Substance into Peripheral Vein, Percutaneous Approach (ICD-10-PCS; principal; 2024-05-07)
DX: D50.9 Iron deficiency anemia, unspecified (principal)
CPT/HCPCS: 96365; J1439

== ENCOUNTER 2024-08-28 04:35 | Day surgery (SDC) | payer OTHER, MEDICARE ==
[2024-08-27 16:15] VITALS: BMI 20.2
[2024-08-28 12:17] VITALS: BP 123/75; PULSE 90; RESP 17; TEMP 97.7
== END 2024-08-28 10:53 | disposition home or self-care (01) ==
LOC: JASU-ENDO 04:35
PROVIDERS: ATTEND Internal Medicine Gastroenterology
PROC: 0DB98ZX Excision of Duodenum, Via Natural or Artificial Opening Endoscopic, Diagnostic (ICD-10-PCS; 2024-08-28)
PROC: 0DB78ZX Excision of Stomach, Pylorus, Via Natural or Artificial Opening Endoscopic, Diagnostic (ICD-10-PCS; 2024-08-28)
PROC: 0DB68ZX Excision of Stomach, Via Natural or Artificial Opening Endoscopic, Diagnostic (ICD-10-PCS; 2024-08-28)
PROC: 0DJD8ZZ Inspection of Lower Intestinal Tract, Via Natural or Artificial Opening Endoscopic (ICD-10-PCS; principal; 2024-08-28 09:00)
DX: Z12.11 Encounter for screening for malignant neoplasm of colon (principal); K64.8 Other hemorrhoids; K57.30 Diverticulosis of large intestine without perforation or abscess without bleeding; K29.50 Unspecified chronic gastritis without bleeding
CPT/HCPCS: 43239; G0121; 88305-TC; 88342-TC

== ENCOUNTER 2024-11-29 18:20 | Inpatient (IN) | payer OTHER, MEDICARE ==
[2024-11-29 21:56] LABS: BASO % 0.2 % (0-2.0); EOS % 0.4 % (0-4.5); HEMATOCRIT 40.5 % (32.4-45.2); HEMOGLOBIN 13.8 GM/dL (10.7-15.3); LYMPH % 7.8 % (8-40); MCH 34.6 pg (25.7-33.7); MEAN CELL VOLUME 101.8 fl (80-96); MEAN PLT VOLUME 10.1 fl (7.5-11.1); NEUT % 81.6 % (42.8-82.8); PLATELET COUNT 69 10^3/uL (134-434); RBC 3.98 M/mm3 (3.60-5.2); RDW 14.7 % (11.6-15.6); WHITE BLOOD COUNT 7.6 K/mm3 (4.0-10.0)
[2024-11-29 22:18] LABS: CALCIUM 10.5 mg/dL (8.5-10.1); INR 1.42 (0.83-1.09); PROTHROMBIN TIME (PATIENT) 15.5 SEC (9.7-13.0)
[2024-11-29 22:19] LABS: ALBUMIN 2.3 g/dl (3.4-5.0)
[2024-11-29 22:21] LABS: ACTIVATED PTT 27.9 SECONDS (25.2-36.5)
[2024-11-29 22:23] LABS: CREATININE 1.3 mg/dL (0.55-1.3)
[2024-11-29 22:25] LABS: BILIRUBIN,TOTAL 5.3 mg/dL (0.2-1); TOT PROT 7.9 g/dl (6.4-8.2)
[2024-11-29 23:42] LABS: CALCIUM 10.1 mg/dL (8.5-10.1)
[2024-11-29 23:43] LABS: ALBUMIN 2.1 g/dl (3.4-5.0); BLOOD UREA NITROGEN 34.6 mg/dL (7-18)
[2024-11-29 23:46] LABS: CREATININE 1.2 mg/dL (0.55-1.3)
[2024-11-29 23:48] LABS: BILIRUBIN,TOTAL 4.8 mg/dL (0.2-1); TOT PROT 7.2 g/dl (6.4-8.2)
[2024-11-30] MEDS: ACETAMINOPHEN 325 MG TABLET (FP) PO PRN (05:40)
[2024-11-30] MEDS: glipiZIDE 5 MG TABLET (FP) PO SCH (06:57)
[2024-11-30] MEDS: PANTOPRAZOLE 40 MG TABLET PO SCH (06:57)
[2024-11-30 07:15] LABS: BASO % 0.1 % (0-2.0); EOS % 0.4 % (0-4.5); HEMATOCRIT 40.8 % (32.4-45.2); HEMOGLOBIN 13.5 GM/dL (10.7-15.3); LYMPH % 8.7 % (8-40); MCH 34.7 pg (25.7-33.7); MCHC 33.2 g/dl (32.0-36.0); MEAN CELL VOLUME 104.6 fl (80-96); MEAN PLT VOLUME 11.2 fl (7.5-11.1); MONO % 10.2 % (3.8-10.2); NEUT % 80.6 % (42.8-82.8); PLATELET COUNT 72 10^3/uL (134-434); RDW 14.4 % (11.6-15.6); WHITE BLOOD COUNT 7.3 K/mm3 (4.0-10.0)
[2024-11-30 07:21] LABS: POTASSIUM 4.7 mmol/L (3.5-5.1)
[2024-11-30 07:23] LABS: BLOOD UREA NITROGEN 36.9 mg/dL (7-18); CALCIUM 10.4 mg/dL (8.5-10.1)
[2024-11-30 07:26] LABS: CREATININE 1.3 mg/dL (0.55-1.3)
[2024-11-30] MEDS: FUROSEMIDE 20 MG TABLET (FP) PO SCH (09:24)
[2024-11-30] MEDS: MYCOPHENOLATE MOFETIL 250 MG CAPSULE PO SCH (09:24)
[2024-11-30 10:23] LABS: ALBUMIN 2.2 g/dl (3.4-5.0)
[2024-11-30 10:26] LABS: BILIRUBIN,DIRECT 2.9 mg/dL (0.0-0.2); BILIRUBIN,TOTAL 4.3 mg/dL (0.2-1)
[2024-11-30 10:29] LABS: TOT PROT 7.3 g/dl (6.4-8.2)
[2024-11-30] MEDS: SPIRONOLACTONE 25 MG TABLET PO SCH (10:41)
[2024-11-30] MEDS: predniSONE 2.5 MG TABLET PO SCH (10:42)
[2024-11-30] MEDS: CARVEDILOL 3.125 MG TABLET (FP) PO SCH (10:42)
[2024-12-01] MEDS: traMADol HCL 50 MG TABLET PO PRN (06:20)
[2024-12-01] MEDS: predniSONE 5 MG TABLET (UD) PO SCH (09:10)
[2024-12-01 09:13] LABS: BASO % 0.2 % (0-2.0); EOS % 1.4 % (0-4.5); HEMATOCRIT 39.2 % (32.4-45.2); HEMOGLOBIN 13.3 GM/dL (10.7-15.3); LYMPH % 11.8 % (8-40); MCH 34.6 pg (25.7-33.7); MEAN CELL VOLUME 101.8 fl (80-96); MEAN PLT VOLUME 10.8 fl (7.5-11.1); MONO % 11.6 % (3.8-10.2); PLATELET COUNT 90 10^3/uL (134-434); RBC 3.85 M/mm3 (3.60-5.2); RDW 14.5 % (11.6-15.6); WHITE BLOOD COUNT 10.4 K/mm3 (4.0-10.0)
[2024-12-01 09:25] LABS: INR 1.35 (0.83-1.09); PROTHROMBIN TIME (PATIENT) 14.7 SEC (9.7-13.0)
[2024-12-01 09:30] LABS: CHLORIDE 101 mmol/L (98-107); POTASSIUM 3.9 mmol/L (3.5-5.1); SODIUM 134 mmol/L (136-145)
[2024-12-01 09:34] LABS: CALCIUM 10.9 mg/dL (8.5-10.1)
[2024-12-01 09:35] LABS: ALBUMIN 2.1 g/dl (3.4-5.0); ANION GAP 8 mmol/L (4-13); BLOOD UREA NITROGEN 31.8 mg/dL (7-18); CO2 25 mmol/L (21-32)
[2024-12-01 09:37] LABS: GLUCOSE,RANDOM 34 mg/dL (74-106)
[2024-12-01 09:38] LABS: BILIRUBIN,DIRECT 2.6 mg/dL (0.0-0.2); SGOT/AST 121 U/L (15-37); SGPT/ALT 48 U/L (13-61)
[2024-12-01 09:40] LABS: BILIRUBIN,TOTAL 3.6 mg/dL (0.2-1); TOT PROT 7.1 g/dl (6.4-8.2)
[2024-12-01 09:41] LABS: ALK PHOS 153 U/L (45-117)
[2024-12-02] MEDS: PANTOPRAZOLE 40 MG TABLET PO SCH (06:44)
[2024-12-02] MEDS: glipiZIDE 5 MG TABLET (FP) PO SCH (06:45)
[2024-12-02 09:20] LABS: HEMOGLOBIN 12.7 GM/dL (10.7-15.3); MCHC 34.4 g/dl (32.0-36.0); MEAN CELL VOLUME 101.7 fl (80-96); MEAN PLT VOLUME 10.6 fl (7.5-11.1); PLATELET COUNT 89 10^3/uL (134-434); RBC 3.64 M/mm3 (3.60-5.2); RDW 14.3 % (11.6-15.6); WHITE BLOOD COUNT 7.9 K/mm3 (4.0-10.0)
[2024-12-02 09:26] LABS: INR 1.37 (0.83-1.09); PROTHROMBIN TIME (PATIENT) 15.1 SEC (9.7-13.0)
[2024-12-02 09:50] LABS: ALBUMIN 1.9 g/dl (3.4-5.0); CALCIUM 11.1 mg/dL (8.5-10.1)
[2024-12-02 09:51] LABS: ANISOCYTOSIS 0; MACROCYTOSIS 1+
[2024-12-02 09:52] LABS: BILIRUBIN,DIRECT 1.7 mg/dL (0.0-0.2); CREATININE 1.1 mg/dL (0.55-1.3)
[2024-12-02 09:54] LABS: BILIRUBIN,TOTAL 2.3 mg/dL (0.2-1); TOT PROT 6.4 g/dl (6.4-8.2)
[2024-12-02] MEDS: predniSONE 5 MG TABLET (UD) PO SCH (12:20)
[2024-12-02] MEDS: SPIRONOLACTONE 25 MG TABLET PO SCH (12:20)
[2024-12-02] MEDS: CARVEDILOL 3.125 MG TABLET (FP) PO SCH (12:20)
[2024-12-02] MEDS: FUROSEMIDE 20 MG TABLET (FP) PO SCH (12:20)
[2024-12-02] MEDS: MYCOPHENOLATE MOFETIL 250 MG CAPSULE PO SCH (12:21)
[2024-12-03 10:14] LABS: HEMATOCRIT 42.5 % (32.4-45.2); HEMOGLOBIN 14.2 GM/dL (10.7-15.3); MCH 34.4 pg (25.7-33.7); MCHC 33.5 g/dl (32.0-36.0); MEAN CELL VOLUME 102.6 fl (80-96); MEAN PLT VOLUME 10.4 fl (7.5-11.1); PLATELET COUNT 179 10^3/uL (134-434); RBC 4.14 M/mm3 (3.60-5.2); RDW 14.8 % (11.6-15.6); WHITE BLOOD COUNT 10.9 K/mm3 (4.0-10.0)
[2024-12-03 10:29] LABS: CHLORIDE 105 mmol/L (98-107); POTASSIUM 4.5 mmol/L (3.5-5.1); SODIUM 138 mmol/L (136-145)
[2024-12-03 10:37] LABS: BLOOD UREA NITROGEN 32.9 mg/dL (7-18); CALCIUM 11.9 mg/dL (8.5-10.1); INR 1.31 (0.83-1.09); PROTHROMBIN TIME (PATIENT) 14.3 SEC (9.7-13.0); SGOT/AST 190 U/L (15-37); SGPT/ALT 76 U/L (13-61)
[2024-12-03 10:38] LABS: ALBUMIN 2.1 g/dl (3.4-5.0); ANION GAP 5 mmol/L (4-13); BILIRUBIN,TOTAL 2.8 mg/dL (0.2-1); CO2 28 mmol/L (21-32); TOT PROT 7.6 g/dl (6.4-8.2)
[2024-12-03 10:39] LABS: GLUCOSE,RANDOM 28 mg/dL (74-106)
[2024-12-03 10:40] LABS: BILIRUBIN,DIRECT 1.6 mg/dL (0.0-0.2); CREATININE 1.1 mg/dL (0.55-1.3)
[2024-12-03 10:47] LABS: ALK PHOS 290 U/L (45-117)
[2024-12-03 10:58] LABS: ANISOCYTOSIS 0; MACROCYTOSIS 0
[2024-12-03] MEDS ORDERED: DEXTROSE 50%-WATER 25 GM/50 ML DISP.SYRIN IVPUSH PRN (12:10)
[2024-12-03 14:03] VITALS: BMI 20.5
[2024-12-03 19:16] LABS: EPI CELLS 24 /uL (0-25.1); HYALINE CASTS 0 /uL (0-3.1); URINE APPEARANCE CLOUDY; URINE BACTERIA >9,000 /uL (0-1359); URINE BILIRUBIN NEGATIVE (NEGATIVE); URINE COLOR YELLOW; URINE GLUCOSE (UA) NEGATIVE (NEGATIVE); URINE KETONE NEGATIVE (NEGATIVE); URINE LEUK ESTERASE 3+ (NEGATIVE); URINE NITRITE NEGATIVE (NEGATIVE); URINE PROTEIN NEGATIVE (NEGATIVE); URINE WBC 81 /uL (0-25.8)
[2024-12-03 20:46] LABS: URINE RBC 62.1 /uL (0-23.9)
[2024-12-04 04:04] VITALS: RESP 18; TEMP 98.5
[2024-12-04] MEDS: LEVOTHYROXINE NA 75 MCG TABLET (FP) PO SCH (06:10)
[2024-12-04] MEDS ORDERED: LACTULOSE 20 GM/30 ML UDC (FOR ORAL USE ONLY) PO PRN (08:30)
[2024-12-04 09:12] LABS: BASO % 0.1 % (0-2.0); EOS % 1.3 % (0-4.5); HEMATOCRIT 41.4 % (32.4-45.2); HEMOGLOBIN 13.9 GM/dL (10.7-15.3); LYMPH % 17.4 % (8-40); MCH 34.7 pg (25.7-33.7); MCHC 33.5 g/dl (32.0-36.0); MEAN CELL VOLUME 103.6 fl (80-96); MEAN PLT VOLUME 9.8 fl (7.5-11.1); MONO % 5.1 % (3.8-10.2); NEUT % 76.1 % (42.8-82.8); PLATELET COUNT 136 10^3/uL (134-434); RDW 14.4 % (11.6-15.6); WHITE BLOOD COUNT 8.9 K/mm3 (4.0-10.0)
[2024-12-04] MEDS: CALCIUM 500MG/VIT-D 200 UNITS COMBO TABLET (FP) PO SCH (09:21)
[2024-12-04] MEDS: CEFTRIAXONE 1 G/50 ML PREMIX 50 ML IVPB SCH (09:21)
[2024-12-04 09:48] LABS: BLOOD UREA NITROGEN 31.9 mg/dL (7-18); POTASSIUM 4.5 mmol/L (3.5-5.1)
[2024-12-04 09:52] LABS: CREATININE 1.3 mg/dL (0.55-1.3)
[2024-12-04 09:53] LABS: BILIRUBIN,TOTAL 2.5 mg/dL (0.2-1)
[2024-12-04] MEDS: CALCITONIN - SALMON SYNTHETIC 200 UNITS/SPRAY NS SCH (15:57)
[2024-12-04 18:49] VITALS: BP 135/87; PULSE 100
== END 2024-12-04 18:51 | DRG 552 ==
LOC: JER 18:20 → JERBED 22:36 → J4W 11-30 04:23 → J6S 11-30 16:40 → OBSVTOIN 12-01 14:39
PROVIDERS: ADMIT Internal Medicine; ATTEND Family Medicine
DX: S22.089A Unspecified fracture of T11-T12 vertebra, initial encounter for closed fracture (principal); R55 Syncope and collapse; M81.0 Age-related osteoporosis without current pathological fracture; K74.60 Unspecified cirrhosis of liver; I12.9 Hypertensive chronic kidney disease with stage 1 through stage 4 chronic kidney disease, or unspecified chronic kidney disease; E03.9 Hypothyroidism, unspecified; Z68.20 Body mass index [BMI] 20.0-20.9, adult; K21.9 Gastro-esophageal reflux disease without esophagitis; E83.52 Hypercalcemia; M54.9 Dorsalgia, unspecified; E11.22 Type 2 diabetes mellitus with diabetic chronic kidney disease; W19.XXXA Unspecified fall, initial encounter; Y93.9 Activity, unspecified; Y92.89 Other specified places as the place of occurrence of the external cause; Y99.9 Unspecified external cause status; N18.9 Chronic kidney disease, unspecified
CPT/HCPCS: 36415; 70450-TC; 71045-TC-FY; 71046-TC-FY; 72125-TC; 72128-TC; 72157-TC; 72170-TC-FY; 74181-TC; 76705-TC; 80048; 80053; 80076; 81003; 82105; 82140; 82247; 82248; 82607; 82746; 82962; 83036; 83970; 84443; 84484; 85025; 85610; 85730; 86140; 86780; 87635; 93005; 93010; 97116-GP; 97161-GP; 99285-25; G0378; J7517